=== PATIENT | female | born 1945 | race Caucasian/White ===

== ENCOUNTER 2017-01-27 14:17 | Emergency (ER) | payer OTHER ==
[2017-01-27 14:20] VITALS: BMI 32.0
--- NOTE | 2017-01-27 14:38 | PDOC ---
History of Present Illness - General Chief Complaint: Revisit,Radiology Variance Stated Complaint: SENT BY PCP History Source: Patient - History of Present Illness Initial Comments: 01/27/17 16:24 Pt was called into to ER by her PMD. He spoke with the pt several days ago after a fall hitting her head on the coffee table. She has a pain in her right side of head without bleeding or neurological defecies. He had sent her in for a Skull xray. This revealed some concern of calcifications ot the right convex. He now sent her in for head CT for evaluation. Pt now neurologically intact, no complaints. PMH: Not on any AC. Past History - Past Medical History Allergies/Adverse Reactions: Allergies Allergy/AdvReac Type Severity Reaction Status Date / Time No Known Allergies Allergy Verified 01/27/17 14:20 Home Medications: Ambulatory Orders Amlodipine Besylate [Norvasc -] 5 mg PO DAILY 01/27/17 Enalapril Maleate [Vasotec] 20 mg PO DAILY 01/27/17 Lactulose 10 gm PO DAILY 01/27/17 Omeprazole 20 mg PO DAILY 01/27/17 GI Disorders: Yes (reflux) HTN: Yes - Suicide/Smoking/Psychosocial Hx Smoking History: Never smoked Information on smoking cessation initiated: No Hx Alcohol Use: No Drug/Substance Use Hx: No Substance Use Type: None Review of Systems - Review of Systems Able to Perform ROS?: Yes All Other Systems: Reviewed and Negative *Physical Exam - Vital Signs Last Vital Signs Temp Pulse Resp BP Pulse Ox 97.7 F 70 18 131/72 98 01/27/17 14:18 01/27/17 14:18 01/27/17 14:18 01/27/17 14:18 01/27/17 14:18 - Physical Exam General Appearance: Yes: Nourished HEENT: positive: Normal ENT Inspection, Normal Voice Respiratory/Chest: positive: Lungs Clear Cardiovascular: positive: Regular Rate Gastrointestinal/Abdominal: positive: Normal Bowel Sounds, Flat, Soft Extremity: positive: Normal Inspection Integumentary: positive: Normal Color, Dry, Warm Medical Decision Making - Medical Decision Making 01/27/17 16:28 Pt seen and examined. pt here for head ct after a fall. Pt head CT shows some calcification on the right side, no midline shift affect, no bleeding but some nodules that should be followed up in a few months with a neurologist and a head CT. *DC/Admit/Observation/Transfer Diagnosis at time of Disposition: Fall Qualifiers: Encounter type: initial encounter Qualified Code(s): W19.XXXA - Unspecified fall, initial encounter; W19.XXXA - Unspecified fall, initial encounter - Discharge Dispostion Disposition: HOME Condition at time of disposition: Good Admit: No - Referrals Referrals: Adan Lu MD [Primary Care Provider] - Yaakov Salazar MD [Staff Physician] - - Patient Instructions Printed Discharge Instructions: How to Prevent Falls Additional Instructions: You have been seen for a repeat head exam since your fall Head CT with noted nodules and concern need to be followed up in a few months with a neurologist. Referral has been given.
[2017-01-27 16:45] VITALS: BP 108/72; PULSE 72; TEMP 98.1
== END 2017-01-27 16:44 | disposition home or self-care (01) ==
LOC: JER 14:17
DX: Z04.3 Encounter for examination and observation following other accident (principal); R51 Headache; Z91.81 History of falling; W01.190A Fall on same level from slipping, tripping and stumbling with subsequent striking against furniture, initial encounter; Y93.9 Activity, unspecified; Y92.9 Unspecified place or not applicable
CPT/HCPCS: 70450-TC; 99282-25

== ENCOUNTER 2017-11-26 11:05 | Emergency (ER) | payer OTHER ==
[2017-11-26 11:16] VITALS: BMI 33.2
--- NOTE | 2017-11-26 11:22 | PDOC ---
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 She states that 2d ago she developed a GIRARD that radiated towards down to her back and then towards her left chest. She states taking Tylenol after which her head and neck pain resolved; however, she continues to endorse the chest pain. It is associated with mild shortness of breath and nausea. She reports new onset LUE numbness/ tingling that started approximately 5 minutes ago. She denies fever, GIRARD/ dizziness, change in vision, abdominal pain, or changes in urination. She denies history of IA and reports having a normal stress test in 201311/26/17 11:44 Past History - Past Medical History Allergies/Adverse Reactions: Allergies Allergy/AdvReac Type Severity Reaction Status Date / Time No Known Allergies Allergy Verified 11/26/17 11:08 Home Medications: Ambulatory Orders Amlodipine Besylate [Norvasc -] 5 mg PO DAILY 01/27/17 Enalapril Maleate [Vasotec] 20 mg PO DAILY 01/27/17 Lactulose 10 gm PO DAILY 01/27/17 Omeprazole 20 mg PO DAILY 01/27/17 COPD: No GI Disorders: Yes (reflux) HTN: Yes - Suicide/Smoking/Psychosocial Hx Smoking History: Never smoked Hx Alcohol Use: No Drug/Substance Use Hx: No Substance Use Type: None Review of Systems - Review of Systems Comments:: GENERAL/CONSTITUTIONAL: No fever or chills. No weakness HEAD, EYES, EARS, NOSE AND THROAT: No change in vision. No ear pain or discharge. No sore throat CARDIOVASCULAR: per HPI RESPIRATORY: No cough, wheezing, or hemoptysis GASTROINTESTINAL: + intermittent nausea; Denies vomiting, diarrhea or constipation GENITOURINARY: No dysuria, frequency, or change in urination MUSCULOSKELETAL: No joint or muscle swelling or pain. No neck or back pain SKIN: No rash NEUROLOGIC: No headache, loss of consciousness, or change in strength/sensation ENDOCRINE: No increased thirst. No abnormal weight change HEMATOLOGIC/LYMPHATIC: No anemia, easy bleeding, or history of blood clots ALLERGIC/IMMUNOLOGIC: No hives or skin allergy 11/26/17 11:20 *Physical Exam - Vital Signs Last Vital Signs Temp Pulse Resp BP Pulse Ox 98.9 F 79 18 139/63 98 11/26/17 11:08 11/26/17 11:08 11/26/17 11:08 11/26/17 11:08 11/26/17 11:08 - Physical Exam Comments: GENERAL: Awake, alert, and fully oriented, in no acute distress HEAD: No signs of trauma, normocephalic, atraumatic EYES: PERRL, EOMI, sclera anicteric, conjunctiva clear ENT: Hearing grossly normal, nares patent, oropharynx clear without exudates. Moist mucosa NECK: Normal ROM, supple, no lymphadenopathy LUNGS: No distress, speaks full sentences, clear to auscultation bilaterally HEART: Regular rate and rhythm, normal S1 and S2, no murmurs appreciated, peripheral pulses normal and equal bilaterally ABDOMEN: Soft, nontender, normoactive bowel sounds. No guarding, no rebound EXTREMITIES : Normal inspection, Normal range of motion, no edema. No clubbing or cyanosis NEUROLOGICAL: Cranial nerves II through XII grossly intact. Normal speech, normal gait, no focal sensorimotor deficits SKIN: Warm, Dry, normal turgor, no rashes or lesions noted 11/26/17 11:22 ED Treatment Course - LABORATORY CBC & Chemistry Diagram: 11/26/17 12:19 11/26/17 12:19 Medical Decision Making - Medical Decision Making The patient is a 72F with a history of HTN who presents with 2days of non- radiating, left-sided, sharp, intermittent chest pain. She states that 2d ago she developed a GIRARD that radiated towards down to her back and then towards her left chest. Ddx: ACS, PE, PNX, PNA; less likely AD/aortic aneurysm ED Course CMP, CBC, Cardiac profile, UA ECG, CXR, B/l BPs Tylenol 975mg PO once for pain ASA 325mg for ACS RUE BP: 110/56 LUE BP: 122/61 CBC without leukocytosis; CMP without electrolyte abnormality ECG without significant change from previous 11/26/17 13:35 Trop negative x2; pain improved; denies SOB; feel comfortable Will DC with PCP and Cards F/u 11/26/17 16:45 Dispo: Home with PCP and Cardiology f/u 11/26/17 17:20 *DC/Admit/Observation/Transfer Diagnosis at time of Disposition: Chest pain in adult - Discharge Dispostion Disposition: HOME Condition at time of disposition: Improved Decision to Admit order: No - Referrals Referrals: Adan Lu MD [Primary Care Provider] - Viral Gooden MD [Staff Physician] - - Patient Instructions Printed Discharge Instructions: DI for Atypical Chest Pain Additional Instructions: You were seen in the Emergency Department today for chest pain and shortness of breath. You were found not to have an acute heart attack or signs of infection. Please review the handouts provided at discharge. Follow up with your primary care physician within the next 1-3 days. Return to the Emergency Department if you begin to experience fevers/chills, worsening symptoms, or any new concerning symptoms. Hoy se lo girard visto en el Departamento de Emergencia por dolor en el pecho y dificultad para respirar. Se descubri que no vinay un ataque cardaco romero o signos de infeccin. Por favor revise los folletos proporcionados al momento del amena. Anh un seguimiento con weinberg mdico de atencin primaria dentro de los prximos 1-3 britt. Regrese al Departamento de Emergencia si comienza a experimentar fiebre / escalofros, empeoramiento de los sntomas o cualquier nuevo sntoma preocupante. Print Language: PARAGUAYAN - Post Discharge Activity
--- NOTE | 2017-11-26 11:27 | PDOC ---
Attending Attestation - HPI HPI: 11/26/17 12:19 The patient is a 72 year old female, with a significant past medical history of HTN, who presents to the emergency department with, 2 days of chest pain. She describes her chest pain as sharp, left-sided and intermittent in nature. Her pain initially onset as a headache which radiated to her back and down to her left chest. She reports taking Tylenol for her pain which alleviated the headache and back pain but not the chest pain. She reports associated nausea and mild shortness of breath. While in the ED, she reports experiencing LUE numbness and tingling. She denies recent fevers, chills, or dizziness. She denies recent vomit, diarrhea or constipation. She denies recent dysuria, frequency, urgency or hematuria. Allergies: NKA Social history: Nonsmoker. Denies EtOH use and recreational drug use. Primary Care Physician: Dr. Lu - Physicial Exam PE: 11/26/17 12:52 GENERAL: The patient is in no acute distress. HEAD: Normal with no signs of trauma. NECK: Normal range of motion, supple without lymphadenopathy, JVD, or masses. LUNGS: Breath sounds equal, clear to auscultation bilaterally. No wheezes, and no crackles. HEART:Regular rate and rhythm, normal S1 and S2 without murmur, rub or gallop. ABDOMEN: Soft, nontender, normoactive bowel sounds. No guarding, no rebound. No masses palpable. EXTREMITIES: Normal range of motion, no edema. No clubbing or cyanosis. No erythema, or tenderness. NEUROLOGICAL: Cranial nerves II through XII grossly intact. Normal speech. No focal neurological deficits. MUSCULOSKELETAL: Back non-tender to palpation, no CVA tenderness SKIN: Warm, Dry, normal turgor, no rashes or lesions noted. <Dewayne Pete - Last Filed: 11/26/17 12:52> - Resident Resident Name: Hansel Vidal - ED Attending Attestation I have performed the following: I have examined & evaluated the patient, The case was reviewed & discussed with the resident, I agree w/resident's findings & plan, Exceptions are as noted - Medical Decision Making 11/26/17 15:56 72 yo F who presents to the ER with a complaint of chest pain Sx began two days ago chest pain is intermittent Began with neck and back pain No shortness of breath Last cardiac work up was in 2016 Laboratory Tests 11/26/17 11/26/17 12:19 12:19 WBC 5.3 Hgb 12.2 Hct 35.9 Plt Count 311 Sodium 141 Potassium 4.3 Chloride 107 Carbon Dioxide 27 BUN 15 Creatinine 0.7 Random Glucose 106 Creatine Kinase 109 Troponin I 0.06 H HEART score 3 Initial troponin indeterminant Repeat troponin pending Troponin repeated Pt seen in the ER by Orthopedic Technician Dr Sheth D/c Home Follow up with PMD and Orthopedic Technician within 2-3 days Clinical Impression: chest pain, initial presentation <Thu Stewart - Last Filed: 11/28/17 09:26> Attestations - Attestations 11/26/17 12:19 Documentation prepared by Dewayne Pete, acting as medical lab technologist for Thu Stewart MD. <Dewayne Pete - Last Filed: 11/26/17 12:52>
[2017-11-26] MEDS ORDERED: ASPIRIN 325 MG TABLET PO ONE (11:37)
[2017-11-26] MEDS ORDERED: ACETAMINOPHEN 325 MG TABLET (FP) PO ONE (11:37)
[2017-11-26] MEDS ORDERED: ACETAMINOPHEN 325 MG TABLET (FP) ONE (12:17)
[2017-11-26] MEDS ORDERED: ASPIRIN 325 MG TABLET ONE (12:18)
[2017-11-26 12:36] LABS: HEMATOCRIT 35.9 % (32.4-45.2); HEMOGLOBIN 12.2 GM/dL (10.7-15.3); MCH 31.7 pg (25.7-33.7); MCHC 34.1 g/dl (32.0-36.0); MEAN PLT VOLUME 8.4 fl (7.5-11.1); PLATELET COUNT 311 K/MM3 (134-434); RBC 3.85 M/mm3 (3.60-5.2); RDW 13.1 % (11.6-15.6); WHITE BLOOD COUNT 5.3 K/mm3 (4.0-10.0)
[2017-11-26 13:26] LABS: URINE APPEARANCE CLEAR; URINE BILIRUBIN NEGATIVE (<2.0 mg/dL); URINE COLOR COLORLESS; URINE GLUCOSE (UA) NEGATIVE (NEGATIVE); URINE KETONE NEGATIVE (NEGATIVE); URINE LEUK ESTERASE NEGATIVE (NEGATIVE); URINE NITRITE NEGATIVE (NEGATIVE); URINE PROTEIN NEGATIVE (NEGATIVE); URINE UROBILINOGEN NEGATIVE mg/dL (0.2-1.0)
[2017-11-26 14:14] LABS: ALBUMIN 3.9 g/dl (3.4-5.0); ALK PHOS 162 U/L (45-117); ANION GAP 7 (8-16); BILIRUBIN,TOTAL 0.3 mg/dL (0.2-1.0); BLOOD UREA NITROGEN 15 mg/dL (7-18); CALCIUM 8.9 mg/dL (8.5-10.1); CHLORIDE 107 mmol/L (98-107); CO2 27 mmol/L (21-32); CREATININE 0.7 mg/dL (0.55-1.02); GLUCOSE,RANDOM 106 mg/dL (74-106); POTASSIUM 4.3 mmol/L (3.5-5.1); SGOT/AST 22 U/L (15-37); SGPT/ALT 29 U/L (12-78); SODIUM 141 mmol/L (136-145); TOT PROT 7.7 g/dl (6.4-8.2)
[2017-11-26 15:30] VITALS: TEMP 98
[2017-11-26 15:31] VITALS: BP 110/56; PULSE 61
--- NOTE | 2017-11-26 16:19 | CON.CARD ---
Consult Consult Specialty:: Cardiology Referred by:: ER Reason for Consultation:: chest pain - History of Present Illness Chief Complaint: chest pain History of Present Illness: 72F h/o HTN p/w 2 days of nonradiating sharp chest pain, left side of chest. Also has headache radiating down back to left chest. Improved with tylenol, however chest pain continued. It is intermittent over the last 2 days. Endorses exercising at the [facility] and walking without exertional symptoms. Does not have laborer [facility]. Reports normal nuclear stress in 2013, report not available. Denies any cardiac history. troponin 0.06 x 2. EKG without ischemic changes. Currently does not have chest pain. - History Source History Provided By: Patient Limitations to Obtaining History: No Limitations - Past Medical History Cardio/Vascular: Yes: HTN - Alcohol/Substance Use Hx Alcohol Use: No - Smoking History Smoking history: Never smoked Home Medications - Allergies Allergies/Adverse Reactions: Allergies Allergy/AdvReac Type Severity Reaction Status Date / Time No Known Allergies Allergy Verified 11/26/17 11:08 - Home Medications Home Medications: Ambulatory Orders Amlodipine Besylate [Norvasc -] 5 mg PO DAILY 01/27/17 Enalapril Maleate [Vasotec] 20 mg PO DAILY 01/27/17 Lactulose 10 gm PO DAILY 01/27/17 Omeprazole 20 mg PO DAILY 01/27/17 Review of Systems - Review of Systems Constitutional: reports: No Symptoms Eyes: reports: No Symptoms HENT: reports: No Symptoms Neck: reports: No Symptoms Cardiovascular: reports: Chest Pain, Shortness of Breath Respiratory: reports: No Symptoms Gastrointestinal: reports: No Symptoms Musculoskeletal: reports: No Symptoms Integumentary: reports: No Symptoms Neurological: reports: Headache, Numbness Endocrine: reports: No Symptoms Hematology/Lymphatic: reports: No Symptoms Psychiatric: reports: No Symptoms Vital Signs: Vital Signs Temperature 98.0 F 11/26/17 15:29 Pulse Rate 61 11/26/17 15:30 Respiratory Rate 18 11/26/17 15:29 Blood Pressure 110/56 11/26/17 15:30 O2 Sat by Pulse Oximetry (%) 97 11/26/17 15:29 Constitutional: Yes: Well Nourished, No Distress Eyes: Yes: Conjunctiva Clear, EOM Intact HENT: Yes: Atraumatic, Normocephalic Neck: Yes: Supple Respiratory: Yes: Regular, CTA Bilaterally Gastrointestinal: Yes: Normal Bowel Sounds, Soft Cardiovascular: Yes: Regular Rate and Rhythm Edema: No Neurological: Yes: Alert, Oriented Psychiatric: Yes: Alert, Oriented - Other Data Labs, Other Data: CBC, BMP 11/26/17 12:19 11/26/17 12:19 Troponin, BNP 11/26/17 12:19 Troponin I 0.06 H Troponin, BNP 11/26/17 12:19 Troponin I 0.06 H Assessment/Plan CXR: no acute process EKG: sinus with nonspecific T wave changes 72F h/o HTN p/w atypical chest pain chest pain - atypical, not exertional, intermittent for over two days - denies exertional symptoms when exercising at home - EKG unremarkable, trop neg x 2, unlikely to be ACS - stable for discharge from cardiac perspective, would follow up with lab[facility] house in 1-2 weeks HTN - controlled on enalapril, amlodipine, continue
--- NOTE | 2017-11-27 16:28 | EKG ---
Test Reason : Blood Pressure : / mmHG Vent. Rate : 079 BPM Atrial Rate : 079 BPM P-R Int : 144 ms QRS Dur : 086 ms QT Int : 384 ms P-R-T Axes : 018 007 -06 degrees QTc Int : 440 ms NORMAL SINUS RHYTHM INFERIOR INFARCT (CITED ON OR BEFORE 26-NOV-2017) ABNORMAL ECG WHEN COMPARED WITH ECG OF 20-JUL-2015 14:42, NO SIGNIFICANT CHANGE WAS FOUND Confirmed by Efren Cardenas MD ([id number]) on 11/27/2017 4:27:25 PM Referred By: Confirmed By:Efren Cardenas MD
== END 2017-11-26 16:15 | disposition home or self-care (01) ==
LOC: JER 11:05
DX: R07.9 Chest pain, unspecified (principal); I10 Essential (primary) hypertension
CPT/HCPCS: 36415; 71045-TC-FY; 80053; 81003; 81015; 82550; 84484; 85027; 93005; 93010; 99285-25

== ENCOUNTER 2017-11-29 07:07 | Emergency (ER) | payer OTHER ==
[2017-11-29 07:19] VITALS: BMI 18.8
--- NOTE | 2017-11-29 07:55 | PDOC ---
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 She states her chest pain is located to her left anterior chest, radiates to her left lateral chest, aggravated by stress, relieved by relaxing, intermittent, lasting 3-5 minutes, described as feeling "like a poke". She states her chest pain began when she was feeling nervous about an [place] examination. She admits to generalized weakness, SOB, urinary urgency, left sided neck pain, mid thoracic back pain. She states her neck pain began x5 days ago when she tilted her head backwards. She was seen in ED for chest pain x3 days ago, Trop 0.06, was seen by cardiology Dr. Sheth, who stated her EKG showed sinus rhythm with non-specific changes, was discharged. Pt was seen by her PCP yesterday, was referred for cardiology outpatient follow up. PCP - Dr. Adan Verduzco Allergies - none Past History - Past Medical History Allergies/Adverse Reactions: Allergies Allergy/AdvReac Type Severity Reaction Status Date / Time No Known Allergies Allergy Verified 11/29/17 07:12 Home Medications: Ambulatory Orders Amlodipine Besylate [Norvasc -] 5 mg PO DAILY 01/27/17 Enalapril Maleate [Vasotec] 20 mg PO DAILY 01/27/17 Lactulose 10 gm PO DAILY 01/27/17 Omeprazole 20 mg PO DAILY 01/27/17 COPD: No DVT: No GI Disorders: Yes (reflux) HTN: Yes - Immunization History Immunization Up to Date: Yes - Suicide/Smoking/Psychosocial Hx Smoking History: Never smoked Hx Alcohol Use: No Drug/Substance Use Hx: No Substance Use Type: None Review of Systems - Review of Systems Able to Perform ROS?: Yes Comments:: 11/29/17 08:49 General: denies fever, chills, night sweats, generalized weakness. HEENT: denies sore throat, rhinorrhea, ear pain. Heart: admits to chest pain. denies palpitations, syncope, lower extremity swelling, diaphoresis. Respiratory: admits to shortness of breath. denies cough, sputum production, hematemesis. Abdomen: denies abdominal pain, nausea, vomiting, diarrhea, constipation, blood in stool. : admits to urinary urgency. denies dysuria, increased urinary frequency, hematuria, urinary incontinence, flank pain. Back: admits to back pain. denies flank pain. Musculoskeletal: admits to neck pain. Neurological: denies headache, dizziness, numbness, tingling, weakness. Skin: denies rash, laceration, abrasion. *Physical Exam - Vital Signs Last Vital Signs Temp Pulse Resp BP Pulse Ox 98.7 F 68 20 149/69 98 11/29/17 07:10 11/29/17 07:10 11/29/17 07:10 11/29/17 07:10 11/29/17 07:10 - Physical Exam Comments: 11/29/17 08:56 Appearance: comfortable. HEENT: head is normocephalic, atraumatic. EOMI. PERRLA. Neck: supple. Full ROM. no tenderness to palpation of mid-line c-spine or paraspinal c-spine. Heart: regular rhythm. no murmurs, rubs or gallops. No pericardial friction rub. no carotid bruit bilaterally. no JVD. Lungs: clear to auscultation bilaterally. no crackles, rhonchi or wheezing. no stridor. Abdomen: soft, nontender. normal bowel sounds. no rebound, guarding, masses. Extremities: Peripheral pulses intact adn equal. No lower extremity edema. Neurological: Alert. Oriented x3. CN 2-12 grossly intact. Moves all four extremities. Heart Score/ECG Review - ECG Impressions Comment:: 11/29/17 10:21 Rate 66, regular rhythm, normal axis, no acute ST changes since prior EKG . ED Treatment Course - LABORATORY CBC & Chemistry Diagram: 11/29/17 09:30 11/29/17 09:30 Medical Decision Making - Medical Decision Making 11/29/17 08:46 72 year old female with PMH HTN presents to ED for chest pain x4 days. Was seen x3 days ago in ED for similar complaints, CXR negative, CBC normal, CMP normal, Trop 0.06, UA negative. Initial Vital Signs Temp Pulse Resp BP Pulse Ox 98.7 F 68 20 149/69 98 11/29/17 07:10 11/29/17 07:10 11/29/17 07:10 11/29/17 07:10 11/29/17 07:10 Afebrile. No tachycardia. No hypoxia. No hypotension. Pending labs, EKG, CXR. 11/29/17 10:17 CXR negative. EKG no changes from x3 days ago. 11/29/17 12:37 CBC normal CMP normal Trop 0.06 UA negative Pending repeat Trop and CTA report. 11/29/17 14:03 Paged Radiology for CTA report. 11/29/17 14:33 CTA report - no hemodynamically significant stenosis bilaterally. incidental possible AVM identified. incidental thyroid nodule identified. Pt will be discharged with instructions for PCP follow up and strict return precautions. I spoke with the patient about the plan for her care, with which she agrees. *DC/Admit/Observation/Transfer Diagnosis at time of Disposition: Chest pain - Discharge Dispostion Disposition: HOME Condition at time of disposition: Stable - Referrals Referrals: Adan Lu MD [Primary Care Provider] - Everett Klein MD, FAANS [Staff Physician] - - Patient Instructions Additional Instructions: You were seen today for chest pain, neck pain and back pain. Your lab work was normal. A copy of your results have been included in your discharge paperwork. Your chest X-ray was normal. A copy of your results have been included in your discharge paperwork. Your CT of your neck revealed the arteries in your neck are normal. An incidental thyroid nodule and vascular malformation. Please follow up with your primary care doctor within 7 days, so that they can follow up on the findings from today. Call their office today and make an appointment. Bring the paperwork given to you today with you. Your care is not complete until you follow up with a primary care doctor. Please follow up with a neurosurgeon within 7 days, so that they can follow up on the findings from today. I have provided a referral for Dr. Klein in your discharge paperwork. Call his office today and make an appointment. Bring the paperwork given to you today with you. Your care is not complete until you follow up with a neurosurgeon. Return to the Emergency Department for any chest pain, shortness of breath, numbness, tingling, nausea, vomiting, lightheadedness, dizziness or any other new, worsening or concerning symptoms. Hoy fuiste visto por dolor en el pecho, dolor de heather y dolor de espalda. Tu trabajo de laboratorio fue normal. Abbie copia de lukasz resultados landry sido incluida en almaraz documentacin de descarga. Almaraz radiografa de trax era normal. Abbie copia de lukasz resultados landry sido incluida en almaraz documentacin de descarga. Almaraz TC de almaraz heather revel que las arterias en almaraz heather son normales. Un ndulo tiroideo incidental y abbie malformacin vascular. Realice un seguimiento con almaraz mdico de atencin primaria dentro de los 7 britt, para que puedan hacer un seguimiento de los hallazgos de hoy. Llmalos delmy y leonila abbie melissa. Traiga la documentacin que se le entreg hoy con usted. Almaraz cuidado no est completo hasta que magda un seguimiento con un mdico de atencin primaria. Por favor, magda un seguimiento con un neurocirujano dentro de los 7 britt, para que puedan hacer un seguimiento de los hallazgos de hoy. He proporcionado abbie referencia para el Dr. Klein en almaraz documentacin de descarga. Llama a almaraz oficina delmy y haz abbie melissa. Traiga la documentacin que se le entreg hoy con usted. Almaraz cuidado no est completo hasta que magda un seguimiento con un neurocirujano. Regrese al servicio de urgencias por cualquier dolor en el pecho, dificultad para respirar, entumecimiento, hormigueo, nuseas, vmitos, aturdimiento, mareos o cualquier otro sntoma nuevo, que empeora o que le afecte. Print Language: ENG - Post Discharge Activity
[2017-11-29 09:53] LABS: BASO % 0.8 % (0-2.0); EOS % 5.1 % (0-4.5); HEMATOCRIT 36.8 % (32.4-45.2); HEMOGLOBIN 12.8 GM/dL (10.7-15.3); LYMPH % 26.8 % (8-40); MCH 32.4 pg (25.7-33.7); MCHC 34.7 g/dl (32.0-36.0); MEAN CELL VOLUME 93.3 fl (80-96); MEAN PLT VOLUME 8.7 fl (7.5-11.1); MONO % 10.1 % (3.8-10.2); NEUT % 57.2 % (42.8-82.8); PLATELET COUNT 331 K/MM3 (134-434); RBC 3.94 M/mm3 (3.60-5.2); RDW 12.9 % (11.6-15.6); WHITE BLOOD COUNT 4.8 K/mm3 (4.0-10.0)
[2017-11-29] MEDS ORDERED: ACETAMINOPHEN 1000 MG/100 ML VIAL (NON FORMULARY) IVPB ONE (09:58)
[2017-11-29 10:03] LABS: INR 1.02 (0.83-1.09); PROTHROMBIN TIME (PATIENT) 11.5 SEC (9.7-13.0)
[2017-11-29 10:06] LABS: ACTIVATED PTT 30.5 SECONDS (25.2-36.5)
[2017-11-29 10:19] LABS: ALBUMIN 4.1 g/dl (3.4-5.0); ANION GAP 8 (8-16); BLOOD UREA NITROGEN 14 mg/dL (7-18); CALCIUM 8.9 mg/dL (8.5-10.1); CHLORIDE 105 mmol/L (98-107); CO2 29 mmol/L (21-32); CREATININE 0.8 mg/dL (0.55-1.02); GLUCOSE,RANDOM 97 mg/dL (74-106); POTASSIUM 4.6 mmol/L (3.5-5.1); SGOT/AST 23 U/L (15-37); SGPT/ALT 29 U/L (12-78); SODIUM 142 mmol/L (136-145)
[2017-11-29 10:24] LABS: ALK PHOS 138 U/L (45-117); BILIRUBIN,TOTAL 0.4 mg/dL (0.2-1.0); TOT PROT 7.9 g/dl (6.4-8.2)
[2017-11-29 10:44] LABS: URINE APPEARANCE CLEAR; URINE BILIRUBIN NEGATIVE (<2.0 mg/dL); URINE COLOR STRAW; URINE GLUCOSE (UA) NEGATIVE (NEGATIVE); URINE KETONE NEGATIVE (NEGATIVE); URINE LEUK ESTERASE NEGATIVE (NEGATIVE); URINE NITRITE NEGATIVE (NEGATIVE); URINE PROTEIN NEGATIVE (NEGATIVE); URINE UROBILINOGEN NEGATIVE mg/dL (0.2-1.0)
--- NOTE | 2017-11-29 10:48 | PDOC ---
Attending Attestation - Resident Resident Name: Samantha,Jeanna - ED Attending Attestation I have performed the following: I have examined & evaluated the patient, The case was reviewed & discussed with the resident, I agree w/resident's findings & plan, Exceptions are as noted - HPI HPI: 11/29/17 10:45 72 F with h/o HTN presents to ED with chest pain and neck pain. Pt reports constant L sided chest pain, non-exertional, nonpleuritic, starting 4 days ago. Pt was seen in this ED 2 days ago and evaluated by cardiology. Pt was discharged home and has since f/u'ed with her PMD who has scheduled a cards appointment for tomorrow. Pt reports the pain has not changed or worsened. However, pt presents today with new complaint of L sided neck pain. She states that she bent her head backwards in the shower and felt sudden pain in her L posterior neck. Denies headache. Denies weakness/numbness in any extremity. - Physicial Exam PE: 11/29/17 10:46 "GENERAL: Awake, alert, and fully oriented, in no acute distress. HEAD: No signs of trauma EYES: PERRLA, EOMI, sclera anicteric, conjunctiva clear ENT: Auricles normal inspection, hearing grossly normal, nares patent, oropharynx clear without exudates. Moist mucosa NECK: Nontender, no stepoffs, Normal ROM, supple, no lymphadenopathy, JVD, or masses LUNGS: Breath sounds equal, clear to auscultation bilaterally. No wheezes, and no crackles HEART: Regular rate and rhythm, normal S1 and S2, no murmurs, rubs or gallops ABDOMEN: Soft, nontender, normoactive bowel sounds. No guarding, no rebound. No masses EXTREMITIES: Normal range of motion, no edema. No clubbing or cyanosis. No cords, erythema, or tenderness NEUROLOGICAL: Cranial nerves II through XII intact. 5/5 strength and sensation in all extremities, Normal speech, normal gait, normal cerebellar function SKIN: Warm, Dry, normal turgor, no rashes or lesions noted." - Medical Decision Making 11/29/17 10:47 72 F with atypical chest pain x 4 days. EKG unchanged since prior evaluation 2 days ago for same complaint. Will r/o ACS with trops. Pt also with new L neck pain after bending head back. Will r/o carotid vs vertebral artery dissection with CTA. - Labs, trop x2 - CTA neck - CXR - Reassess 11/29/17 12:18 Labs unremarkable, first trop 0.06, consistent with pt's baseline Will repeat trop CTA ordered at 9:30, taken, awaiting radiology report 11/29/17 14:04 2nd trop 0.05 Dispo pending radiology report of CTA 11/29/17 14:35 CTA unremarkable other than small vascular abnormality. Pt informed of results and understands need to f/u with nsgy for further evaluation. Pt is well appearing, with normal vitals. Clinically stable for DC at this time. I discussed the physical exam findings, ancillary test results and final diagnoses with the patient. I answered all of the patient's questions. The patient was satisfied with the care received and felt comfortable with the discharge plan and treatment plan. The patient agrees to follow up with the primary care physician within 24-72 hours.
[2017-11-29 14:48] VITALS: BP 127/70; PULSE 60; TEMP 98.2
--- NOTE | 2017-11-29 15:46 | EKG ---
Test Reason : Blood Pressure : / mmHG Vent. Rate : 066 BPM Atrial Rate : 066 BPM P-R Int : 160 ms QRS Dur : 086 ms QT Int : 424 ms P-R-T Axes : 031 020 004 degrees QTc Int : 444 ms SINUS RHYTHM WITH OCCASIONAL PREMATURE VENTRICULAR COMPLEXES CANNOT RULE OUT INFERIOR INFARCT (CITED ON OR BEFORE 26-NOV-2017) ABNORMAL ECG WHEN COMPARED WITH ECG OF 26-NOV-2017 11:12, PREMATURE VENTRICULAR COMPLEXES ARE NOW PRESENT Confirmed by SHOAIB TANNER MD ([id number]) on 11/29/2017 3:45:57 PM Referred By: Confirmed By:SHOAIB TANNER MD
== END 2017-11-29 15:12 | disposition home or self-care (01) ==
LOC: JER 07:07
PROC: 3E033NZ Introduction of Analgesics, Hypnotics, Sedatives into Peripheral Vein, Percutaneous Approach (ICD-10-PCS; principal; 2017-11-29)
DX: R07.9 Chest pain, unspecified (principal); I10 Essential (primary) hypertension
CPT/HCPCS: 36415; 70498-TC; 71046-TC-FY; 80053; 81003; 81015; 82550; 84484; 85025; 85610; 85730; 87086; 93005; 93010; 99283-25; J0131

== ENCOUNTER 2018-02-22 09:13 | Emergency (ER) | payer OTHER ==
[2018-02-22 09:40] VITALS: BMI 29.2
--- NOTE | 2018-02-22 09:47 | PDOC ---
History of Present Illness - General Chief Complaint: Pain Stated Complaint: ABD PAIN Time Seen by Provider: 02/22/18 09:47 History Source: Patient Exam Limitations: No Limitations Past History - Past Medical History Allergies/Adverse Reactions: Allergies Allergy/AdvReac Type Severity Reaction Status Date / Time No Known Allergies Allergy Verified 02/22/18 09:32 Home Medications: Ambulatory Orders Amlodipine Besylate [Norvasc -] 5 mg PO DAILY 01/27/17 Enalapril Maleate [Vasotec] 20 mg PO DAILY 01/27/17 Lactulose 10 gm PO DAILY 01/27/17 Omeprazole 20 mg PO DAILY 01/27/17 Meloxicam 15 mg PO DAILY 30 Days #30 tablet MDD 15mg 02/05/18 COPD: No DVT: No GI Disorders: Yes (reflux) HTN: Yes - Immunization History Immunization Up to Date: Yes - Suicide/Smoking/Psychosocial Hx Smoking History: Never smoked Hx Alcohol Use: No Drug/Substance Use Hx: No Substance Use Type: None *Physical Exam - Vital Signs Last Vital Signs Temp Pulse Resp BP Pulse Ox 98.1 F 70 18 117/63 99 02/22/18 09:32 02/22/18 09:32 02/22/18 09:32 02/22/18 09:32 02/22/18 09:32 *DC/Admit/Observation/Transfer - Referrals Referrals: Adan Lu MD [Primary Care Provider] - - Patient Instructions - Post Discharge Activity
--- NOTE | 2018-02-22 10:13 | PDOC ---
History of Present Illness - General Chief Complaint: Pain Stated Complaint: ABD PAIN Time Seen by Provider: 02/22/18 09:47 History Source: Patient - History of Present Illness Initial Comments: 02/22/18 10:41 The patient is a 73 year old female with a PMH of HTN and diverticulitis who presents with a 2 day h/o L sided abdominal pain. Pain started last night around 8 p.m. and was initially a 5-6/10 however this morning it was a 9/10 prompting her to come to the ED. Patient states the pain is constant, sharp, w/ o any radiation, and no identifiable triggering or relieving factors. Denies associated nausea/vomiting, fevers/chills, flank pain, dysuria/hematuria. Last BM was earlier today and was normal. H/o constipation for which she takes Metamucil PRN. 10 point ROS is negative including no headache, sore throat, cough, numbness/ tingling, . NKDA Social: denies toxic habits PMD: Dr. Reeder Past History - Past Medical History Allergies/Adverse Reactions: Allergies Allergy/AdvReac Type Severity Reaction Status Date / Time No Known Allergies Allergy Verified 02/22/18 09:32 Home Medications: Ambulatory Orders Amlodipine Besylate [Norvasc -] 5 mg PO DAILY 01/27/17 Enalapril Maleate [Vasotec] 20 mg PO DAILY 01/27/17 Omeprazole 20 mg PO DAILY 01/27/17 Alendronate Sodium [Binosto] 70 mg PO ASDIR 02/22/18 COPD: No DVT: No GI Disorders: Yes (reflux) HTN: Yes - Immunization History Immunization Up to Date: Yes - Suicide/Smoking/Psychosocial Hx Smoking History: Never smoked Hx Alcohol Use: No Drug/Substance Use Hx: No Substance Use Type: None *Physical Exam - Vital Signs Last Vital Signs Temp Pulse Resp BP Pulse Ox 98.1 F 70 18 117/63 99 02/22/18 09:32 02/22/18 09:32 02/22/18 09:32 02/22/18 09:32 02/22/18 09:32 - Physical Exam General Appearance: Yes: Nourished, Appropriately Dressed HEENT: positive: Normal Voice, Hearing Grossly Normal Neck: positive: Trachea midline, Supple Respiratory/Chest: positive: Lungs Clear, Normal Breath Sounds Cardiovascular: positive: S1, S2. negative: Edema, JVD Vascular Pulses: Dorsalis-Pedis (R): 2+, Doralis-Pedis (L): 2+ Gastrointestinal/Abdominal: positive: Normal Bowel Sounds, Soft, Tenderness ( Mild LLQ on deep palpation). negative: Guarding, Rebound, Hernia, Mass Musculoskeletal: negative: CVA Tenderness (R), CVA Tenderness (L) Extremity: positive: Normal Capillary Refill, Normal Inspection Integumentary: positive: Normal Color, Dry, Warm Neurologic: positive: Fully Oriented, Alert ED Treatment Course - LABORATORY CBC & Chemistry Diagram: 02/22/18 10:24 02/22/18 10:24 Medical Decision Making - Medical Decision Making 02/22/18 11:28 73 year old female with abdominal pain. H/o diverticulitis. VS unremarkable. Soft belly on PE w/mild TTP of LLQ. DDx includes: diverticulitis, SBO, mesenteric ischemia, gastritis. Will obtain basic labs, abdominal CT. IV hydration. Reassess 02/22/18 12:24 Cr 0.[address] 02/22/18 15:01 CT shows diverticula without evidence of acute diverticulitis, no SBO. Patient tolerating PO intake. Symptomatically improved. Will discharge home with supportive care, return precautions and PMD follow-up. I discussed the physical exam findings, ancillary test results and final diagnoses with the patient. I answered all of the patient's questions. The patient was satisfied with the care received and felt comfortable with the discharge plan and treatment plan. The patient will return to the Emergency Department with any new, persistent or worsening symptoms. *DC/Admit/Observation/Transfer Diagnosis at time of Disposition: Abdominal pain - Discharge Dispostion Disposition: HOME Condition at time of disposition: Good Decision to Admit order: No - Referrals Referrals: Adan Lu MD [Primary Care Provider] - Otoniel Quinones MD [Staff Physician] - - Patient Instructions Printed Discharge Instructions: DI for Abdominal Pain-Adult Additional Instructions: You were evaluated today for abdominal pain. A Cat Scan of your abdomen showed no concerning findings. At this time you are safe for discharge. Drink lots of water and eat small meals for the next few days. Start with soft foods (applesauce, bread, rice) and advance your diet as tolerated. Please follow up with your primary care doctor (Dr. Reeder) in the next 3 days. Please also make a follow up appointment with Dr. Quinones (a stomach doctor) for further evaluation. Return to the Emergency Department for any new/worsening/concerning symptoms. Usted fue evaluado hoy para el dolor abdominal. Abbie exploracin de irineo de weinberg abdomen no mostr hallazgos preocupantes. En carolina momento usted est seguro para el amena. Yudith katharine agua y coma comidas pequeas diana los prximos britt. Comience con alimentos blandos (compota de manzana, mcallister, arroz) y avance weinberg dieta segn lo tolere. Por favor, magda un seguimiento con weinberg mdico de atencin primaria (Dr. Reeder) en los prximos 3 britt. Por favor, tambin magda abbie melissa de seguimiento con el Dr. Quinones (un mdico estomacal) para abbie evaluacin adicional. Regrese al Departamento de Emergencias para cualquier sntoma nuevo / que empeora / relacionado. Print Language: GREEK - Post Discharge Activity
[2018-02-22 10:20] LABS: URINE APPEARANCE CLEAR; URINE BILIRUBIN NEGATIVE (<2.0 mg/dL); URINE GLUCOSE (UA) NEGATIVE (NEGATIVE); URINE KETONE NEGATIVE (NEGATIVE); URINE LEUK ESTERASE NEGATIVE (NEGATIVE); URINE NITRITE NEGATIVE (NEGATIVE); URINE PROTEIN NEGATIVE (NEGATIVE); URINE UROBILINOGEN NEGATIVE mg/dL (0.2-1.0)
[2018-02-22] MEDS ORDERED: SODIUM CHLORIDE 0.9% 500 ML INFUS.BAG IV ONE (10:21)
[2018-02-22 10:24] LABS: URINE COLOR YELLOW
[2018-02-22 10:42] LABS: URINE HYALINE CAST 12 /lpf; URINE MUCUS MANY
--- NOTE | 2018-02-22 10:42 | PDOC ---
Attending Attestation - Resident Resident Name: Dayana Burrell - ED Attending Attestation I have performed the following: I have examined & evaluated the patient, The case was reviewed & discussed with the resident, I agree w/resident's findings & plan, Exceptions are as noted - HPI HPI: 02/22/18 10:42 Ms Michael Napier is a 73 yo F h/o HTN and diverticulitis She presents to the ER with a complaint of left sided abdominal pain Pain began last night and at that time, was 5/10 Pain has worsened and is now 10/10 No radiation Pt has a h/o constipation but did have 2 bowel movements No fevers or chills No nausea or vomiting 02/22/18 12:32 - Physicial Exam PE: 02/22/18 10:42 GENERAL: The patient is in no acute distress. LUNGS: Breath sounds equal, clear to auscultation bilaterally. No wheezes, and no crackles. HEART:Regular rate and rhythm, normal S1 and S2 ABDOMEN: Soft, nontender, normoactive bowel sounds. No guarding, no rebound. EXTREMITIES: Normal range of motion, no edema. NEUROLOGICAL: Cranial nerves II through XII grossly intact. Normal speech. No focal neurological deficits. SKIN: Warm, Dry, normal turgor, no rashes or lesions noted. 02/22/18 12:33 - Medical Decision Making 02/22/18 12:34 Laboratory Tests 02/22/18 02/22/18 02/22/18 10:00 10:24 10:24 WBC 4.4 Hgb 12.7 Hct 38.1 Plt Count 335 Neutrophils % 54.4 Lymphocytes % 26.4 INR BUN 21 H Creatinine 0.8 Lipase 110 Urine Blood 1+ H Urine Nitrite Negative Ur Leukocyte Esterase Negative Urine WBC (Auto) 1 Urine RBC (Auto) 2 02/22/18 10:24 WBC Hgb Hct Plt Count Neutrophils % Lymphocytes % INR 0.96 BUN Creatinine Lipase Urine Blood Urine Nitrite Ur Leukocyte Esterase Urine WBC (Auto) Urine RBC (Auto) CT pending
[2018-02-22 10:53] LABS: ALBUMIN 3.9 g/dl (3.4-5.0); ALK PHOS 146 U/L (45-117); ANION GAP 9 MMOL/L (8-16); BILIRUBIN,TOTAL 0.3 mg/dL (0.2-1); BLOOD UREA NITROGEN 21 mg/dL (7-18); CHLORIDE 105 mmol/L (98-107); CO2 26 mmol/L (21-32); CREATININE 0.8 mg/dL (0.55-1.3); GLUCOSE,RANDOM 102 mg/dL (74-106); LIPASE 110 U/L (73-393); POTASSIUM 4.5 mmol/L (3.5-5.1); SGOT/AST 25 U/L (15-37); SGPT/ALT 33 U/L (13-61); SODIUM 140 mmol/L (136-145); TOT PROT 7.6 g/dl (6.4-8.2)
[2018-02-22 11:01] LABS: INR 0.96 (0.83-1.09); PROTHROMBIN TIME (PATIENT) 11.3 SEC (9.7-13.0)
[2018-02-22 11:04] LABS: ACTIVATED PTT 31.5 SECONDS (25.2-36.5)
[2018-02-22 11:11] LABS: BASO % 0.6 % (0-2.0); EOS % 8.6 % (0-4.5); HEMATOCRIT 38.1 % (32.4-45.2); HEMOGLOBIN 12.7 GM/dL (10.7-15.3); LYMPH % 26.4 % (8-40); MCH 31.2 pg (25.7-33.7); MCHC 33.3 g/dl (32.0-36.0); MEAN CELL VOLUME 93.9 fl (80-96); MEAN PLT VOLUME 9.3 fl (7.5-11.1); NEUT % 54.4 % (42.8-82.8); PLATELET COUNT 335 K/MM3 (134-434); RBC 4.05 M/mm3 (3.60-5.2); RDW 13.2 % (11.6-15.6); WHITE BLOOD COUNT 4.4 K/mm3 (4.0-10.0)
[2018-02-22 15:24] VITALS: BP 128/79; PULSE 74; TEMP 98.3
== END 2018-02-22 15:25 | disposition home or self-care (01) ==
LOC: JER 09:13
PROC: 3E0337Z Introduction of Electrolytic and Water Balance Substance into Peripheral Vein, Percutaneous Approach (ICD-10-PCS; principal; 2018-02-22)
DX: R10.9 Unspecified abdominal pain (principal); I10 Essential (primary) hypertension; K21.9 Gastro-esophageal reflux disease without esophagitis
CPT/HCPCS: 36415; 74177-TC; 80053; 81003; 81015; 83605; 83690; 85025; 85610; 85730; 86850; 86900; 86901; 87086; 99283-25

== ENCOUNTER 2018-06-30 11:03 | Emergency (ER) | payer OTHER ==
[2018-06-30 11:17] VITALS: BMI 27.4
--- NOTE | 2018-06-30 11:58 | PDOC ---
History of Present Illness - General Chief Complaint: Chest Pain Stated Complaint: CHEST PAIN Time Seen by Provider: 06/30/18 11:30 - History of Present Illness Initial Comments: 06/30/18 11:57 73 F with h/o HTN presents to ED with L breast/chest wall pain. Pt states that she noticed a "little ball" in her L breast about 3 days ago. She reports that it feels sore. She took tylenol for the pain, which helped transiently. Pt denies any SOB. Denies pain upon movement of the arms, but pain does slightly increase on inspiration. Denies F/C/cough. Denies N/V. Denies palpitations. 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 pcp: talon 06/30/18 12:28 Past History - Past Medical History Allergies/Adverse Reactions: Allergies Allergy/AdvReac Type Severity Reaction Status Date / Time No Known Allergies Allergy Verified 06/30/18 11:17 Home Medications: Ambulatory Orders Amlodipine Besylate [Norvasc -] 5 mg PO DAILY 01/27/17 Enalapril Maleate [Vasotec] 20 mg PO DAILY 01/27/17 Omeprazole 20 mg PO DAILY 01/27/17 Alendronate Sodium [Binosto] 70 mg PO ASDIR 02/22/18 COPD: No DVT: No GI Disorders: Yes (reflux) HTN: Yes - Immunization History Immunization Up to Date: Yes - Suicide/Smoking/Psychosocial Hx Smoking History: Never smoked Hx Alcohol Use: No Drug/Substance Use Hx: No Substance Use Type: None Review of Systems - Review of Systems Able to Perform ROS?: Yes Is the patient limited Liberian proficient: No Constitutional: No: Symptoms Reported HEENTM: No: Symptoms Reported Respiratory: No: Symptoms reported Cardiac (ROS): Yes: See HPI ABD/GI: No: Symptoms Reported : No: Symptoms Reported Musculoskeletal: No: Symptoms Reported All Other Systems: Reviewed and Negative *Physical Exam - Vital Signs Last Vital Signs Temp Pulse Resp BP Pulse Ox 98 F 73 18 147/66 100 06/30/18 11:09 06/30/18 11:09 06/30/18 11:09 06/30/18 11:09 06/30/18 11:09 - Physical Exam Comments: 06/30/18 12:32 GENERAL: Awake, alert, and fully oriented, in no acute distress. HEAD: No signs of trauma EYES: PERRLA, EOMI, sclera anicteric, conjunctiva clear ENT: Auricles normal inspection, hearing grossly normal, nares patent, oropharynx clear without exudates. Moist mucosa NECK: Nontender, no stepoffs, Normal ROM, supple, no lymphadenopathy, JVD, or masses LUNGS: Breath sounds equal, clear to auscultation bilaterally. No wheezes, and no crackles HEART: Regular rate and rhythm, normal S1 and S2, no murmurs, rubs or gallops CHEST: + palpable tender nodule L breast, no fluctuance or induration ABDOMEN: Soft, nontender, normoactive bowel sounds. No guarding, no rebound. No masses EXTREMITIES: Normal range of motion, no edema. No clubbing or cyanosis. No cords, erythema, or tenderness NEUROLOGICAL: Cranial nerves II through XII intact. 5/5 strength and sensation in all extremities, Normal speech, normal gait, normal cerebellar function SKIN: Warm, Dry, normal turgor, no rashes or lesions noted. Moderate Sedation - Procedure Monitoring Vital Signs: Procedure Monitoring Vital Signs Temperature 98 F 06/30/18 11:09 Pulse Rate 73 06/30/18 11:09 Respiratory Rate 18 06/30/18 11:09 Blood Pressure 147/66 06/30/18 11:09 O2 Sat by Pulse Oximetry (%) 100 06/30/18 11:09 ED Treatment Course - LABORATORY CBC & Chemistry Diagram: 06/30/18 12:13 06/30/18 12:13 - RADIOLOGY Radiology Studies Ordered: Category Date Time Status CHEST PA & LAT [RAD] Stat Radiology 06/30/18 11:55 Ordered Medical Decision Making - Medical Decision Making 06/30/18 12:33 73 F with sore nodule in L breast. No evidence of active infection on exam. Patient has multiple visits for the same symptoms (and incidentally trops of 0.06) with unremarkable finding. Last visit had a CTA chest which was negative. Pt's EKG with no ischemic changes. Pain seems within the tissue of the breath rather than intrathoracic. 06/30/18 14:11 Will admit to tele obs due to heart score. *DC/Admit/Observation/Transfer Diagnosis at time of Disposition: Atypical chest pain - Discharge Dispostion Decision to Admit order: Yes - Referrals Referrals: Adan Lu MD [Primary Care Provider] - - Patient Instructions - Post Discharge Activity
--- NOTE | 2018-06-30 12:22 | PDOC ---
Attending Attestation - Resident Resident Name: Jacinto Dennison - ED Attending Attestation I have performed the following: I have examined & evaluated the patient, The case was reviewed & discussed with the resident, I agree w/resident's findings & plan, Exceptions are as noted - HPI HPI: 06/30/18 12:22 73 F with h/o HTN presents to ED with L chest wall pain. Pt states that she noticed a lump in her L breast about 3 days ago. She reports that it feels sore. She took tylenol for the pain, which helped transiently. Pt denies any SOB. Denies any exertional or pleuritic nature of the pain. Denies F/C/cough. Denies N/V. Denies palpitations. - Physicial Exam PE: 06/30/18 12:23 GENERAL: Awake, alert, and fully oriented, in no acute distress. HEAD: No signs of trauma EYES: PERRLA, EOMI, sclera anicteric, conjunctiva clear ENT: Auricles normal inspection, hearing grossly normal, nares patent, oropharynx clear without exudates. Moist mucosa NECK: Nontender, no stepoffs, Normal ROM, supple, no lymphadenopathy, JVD, or masses LUNGS: Breath sounds equal, clear to auscultation bilaterally. No wheezes, and no crackles HEART: Regular rate and rhythm, normal S1 and S2, no murmurs, rubs or gallops CHEST: + palpable tender nodule L breast, no fluctuance or induration ABDOMEN: Soft, nontender, normoactive bowel sounds. No guarding, no rebound. No masses EXTREMITIES: Normal range of motion, no edema. No clubbing or cyanosis. No cords, erythema, or tenderness NEUROLOGICAL: Cranial nerves II through XII intact. 5/5 strength and sensation in all extremities, Normal speech, normal gait, normal cerebellar function SKIN: Warm, Dry, normal turgor, no rashes or lesions noted. - Medical Decision Making 06/30/18 12:25 73 F with sore nodule in L breast. No evidence of active infection on exam. Pt' s EKG with no ischemic changes and pain is very atypical, making ACS unlikely. Pt without any other symptoms concerning for cardiopulmonary process. - Labs, trop - CXR - F/u OB for mammogram 06/30/18 14:15 Trop 0.10 Last troponin 0.05 Will admit tele obs to trend trops, cards consult
[2018-06-30 12:29] LABS: BASO % 0.7 % (0-2.0); EOS % 8.2 % (0-4.5); HEMATOCRIT 36.1 % (32.4-45.2); HEMOGLOBIN 12.7 GM/dL (10.7-15.3); LYMPH % 25.8 % (8-40); MCH 32.8 pg (25.7-33.7); MCHC 35.2 g/dl (32.0-36.0); MEAN CELL VOLUME 93.2 fl (80-96); MEAN PLT VOLUME 8.5 fl (7.5-11.1); MONO % 9.5 % (3.8-10.2); NEUT % 55.8 % (42.8-82.8); PLATELET COUNT 309 K/MM3 (134-434); RBC 3.88 M/mm3 (3.60-5.2); RDW 13.3 % (11.6-15.6); WHITE BLOOD COUNT 4.7 K/mm3 (4.0-10.0)
[2018-06-30 12:50] LABS: INR 1.03 (0.83-1.09); PROTHROMBIN TIME (PATIENT) 12.2 SEC (9.7-13.0)
[2018-06-30 12:59] LABS: ALBUMIN 3.8 g/dl (3.4-5.0); ALK PHOS 133 U/L (45-117); ANION GAP 5 MMOL/L (8-16); BILIRUBIN,TOTAL 0.3 mg/dL (0.2-1); BLOOD UREA NITROGEN 11 mg/dL (7-18); CALCIUM 8.7 mg/dL (8.5-10.1); CHLORIDE 104 mmol/L (98-107); CO2 26 mmol/L (21-32); CREATININE 0.8 mg/dL (0.55-1.3); GLUCOSE,RANDOM 120 mg/dL (74-106); MAGNESIUM 2.1 mg/dL (1.8-2.4); POTASSIUM 4.3 mmol/L (3.5-5.1); SGOT/AST 18 U/L (15-37); SGPT/ALT 24 U/L (13-61); SODIUM 135 mmol/L (136-145); TOT PROT 7.3 g/dl (6.4-8.2)
[2018-06-30 14:33] VITALS: TEMP 97.8
--- NOTE | 2018-06-30 15:15 | HP ---
CHIEF COMPLAINT: Chest soreness PCP: Dr. 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 Gooden HISTORY OF PRESENT ILLNESS: 73yo F with history of HTN who presents today with chest soreness for the past day which has been intermittent in nature. Pt reports she took Tylenol which helped the pain slightly, but came to the hospital because she was worried about her pain. Pt reports she noticed a nodule in her L breast about 3 days ago which has never happened before. Pt denies any active chest pain, palpitations, shortness of breath, jaw claudication, diaphoresis, previous cardiac history, headaches, lightheadedness, f/c/n/v/d/constipation. Recent Travel: Denies PAST MEDICAL HISTORY: HTN PAST SURGICAL HISTORY: None Social History: Smoking: Denies Alcohol: Denies Drugs: Denies Lives at home with ; good medical follow-up Family History: Allergies No Known Allergies Allergy (Verified 06/30/18 11:17) HOME MEDICATIONS: Home Medications Medication Instructions Recorded Amlodipine Besylate [Norvasc -] 5 mg PO DAILY 01/27/17 Enalapril Maleate [Vasotec] 20 mg PO DAILY 01/27/17 Omeprazole 20 mg PO DAILY 01/27/17 Alendronate Sodium [Binosto] 70 mg PO ASDIR 02/22/18 REVIEW OF SYSTEMS As per HPI PHYSICAL EXAMINATION Vital Signs 06/30/18 06/30/18 11:09 14:32 Temperature 98 F 97.8 F Pulse Rate 73 Pulse Rate [ 69 Left Apical] Respiratory 18 16 Rate Blood Pressure 147/66 Blood Pressure 126/69 [Left Arm] O2 Sat by Pulse 100 98 Oximetry (%) GENERAL: NAD, awake, alert, and fully oriented HEENT: NC/AT, EOMI, DIMITRI NECK: No JVD CHEST: Tender L chest nodule freely mobile in the 12:30 position. No induration , no skin changes noted LUNGS: Breath sounds equal, clear to auscultation bilaterally. No wheezes, and no crackles. No accessory muscle use. HEART: Regular rate and rhythm, normal S1 and S2 without murmur ABDOMEN: Soft, nontender, not distended, normoactive bowel sounds, no guarding MUSCULOSKELETAL: No CVA tenderness. EXTREMITIES: 2+ DP pulses, warm, No calf tenderness. No peripheral edema. PSYCHIATRIC: Cooperative. Good eye contact. Appropriate mood and affect. SKIN: Warm, dry, no rashes or lesions noted Laboratory Results 06/30/18 06/30/18 06/30/18 12:13 12:13 12:13 WBC 4.7 RBC 3.88 Hgb 12.7 Hct 36.1 MCV 93.2 MCH 32.8 MCHC 35.2 RDW 13.3 Plt Count 309 MPV 8.5 Absolute Neuts (auto) 2.6 Neutrophils % 55.8 Lymphocytes % 25.8 Monocytes % 9.5 Eosinophils % 8.2 H Basophils % 0.7 Nucleated RBC % 0 PT with INR 12.20 INR 1.03 PTT (Actin FS) Sodium 135 L Potassium 4.3 Chloride 104 Carbon Dioxide 26 Anion Gap 5 L BUN 11 Creatinine 0.8 Creat Clearance w eGFR > 60 Random Glucose 120 H Calcium 8.7 Magnesium 2.1 Total Bilirubin 0.3 AST 18 ALT 24 Alkaline Phosphatase 133 H Troponin I Total Protein 7.3 Albumin 3.8 06/30/18 06/30/18 12:13 13:59 WBC RBC Hgb Hct MCV MCH MCHC RDW Plt Count MPV Absolute Neuts (auto) Neutrophils % Lymphocytes % Monocytes % Eosinophils % Basophils % Nucleated RBC % PT with INR INR PTT (Actin FS) Sodium Potassium Chloride Carbon Dioxide Anion Gap BUN Creatinine Creat Clearance w eGFR Random Glucose Calcium Magnesium Total Bilirubin AST ALT Alkaline Phosphatase Troponin I 0.10 H 0.09 H Total Protein Albumin ASSESSMENT/PLAN: Atypical chest pain HTN HTN stable at this point. Continue home medications Highly atypical chest pain with minimal elevation and downtrending troponins. Dr. Gooden was called in ED who recommended 2nd trop and if downtrending to discharge with outpatient follow-up. Would recommend outpatient f/u with diagnostic mammography vs. ultrasound of nodule Tylenol OTC for pain relief with alternating motrin if necessary Dispo: D/C home Case discussed Juan Jaramillo, - IM PGY-2 Visit type - Emergency Visit Emergency Visit: Yes Care time: The patient presented to the Emergency Department on the above date and was hospitalized for further evaluation of their emergent condition. - New Patient This patient is new to me today: Yes Date on this admission: 06/30/18 - Critical Care Critical Care patient: No
--- NOTE | 2018-06-30 15:22 | DS ---
Physical Exam: SUBJECTIVE: See H&P OBJECTIVE: Vital Signs Period Temp Pulse Resp BP Sys/Sprague Pulse Ox Last 24 Hr 97.8 F-98 F 69-73 16-18 126-147/66-69 98-100 PHYSICAL EXAM GENERAL: NAD, awake, alert, and fully oriented HEENT: NC/AT, EOMI, DIMITRI NECK: No JVD CHEST: Tender L chest nodule freely mobile in the 12:30 position. No induration , no skin changes noted LUNGS: Breath sounds equal, clear to auscultation bilaterally. No wheezes, and no crackles. No accessory muscle use. HEART: Regular rate and rhythm, normal S1 and S2 without murmur ABDOMEN: Soft, nontender, not distended, normoactive bowel sounds, no guarding MUSCULOSKELETAL: No CVA tenderness. EXTREMITIES: 2+ DP pulses, warm, No calf tenderness. No peripheral edema. PSYCHIATRIC: Cooperative. Good eye contact. Appropriate mood and affect. SKIN: Warm, dry, no rashes or lesions noted LABS Laboratory Results - last 24 hr 06/30/18 06/30/18 06/30/18 12:13 12:13 12:13 WBC 4.7 RBC 3.88 Hgb 12.7 Hct 36.1 MCV 93.2 MCH 32.8 MCHC 35.2 RDW 13.3 Plt Count 309 MPV 8.5 Absolute Neuts (auto) 2.6 Neutrophils % 55.8 Lymphocytes % 25.8 Monocytes % 9.5 Eosinophils % 8.2 H Basophils % 0.7 Nucleated RBC % 0 PT with INR 12.20 INR 1.03 PTT (Actin FS) Sodium 135 L Potassium 4.3 Chloride 104 Carbon Dioxide 26 Anion Gap 5 L BUN 11 Creatinine 0.8 Creat Clearance w eGFR > 60 Random Glucose 120 H Calcium 8.7 Magnesium 2.1 Total Bilirubin 0.3 AST 18 ALT 24 Alkaline Phosphatase 133 H Troponin I Total Protein 7.3 Albumin 3.8 06/30/18 06/30/18 06/30/18 12:13 12:13 13:59 WBC RBC Hgb Hct MCV MCH MCHC RDW Plt Count MPV Absolute Neuts (auto) Neutrophils % Lymphocytes % Monocytes % Eosinophils % Basophils % Nucleated RBC % PT with INR INR PTT (Actin FS) 32.9 Sodium Potassium Chloride Carbon Dioxide Anion Gap BUN Creatinine Creat Clearance w eGFR Random Glucose Calcium Magnesium Total Bilirubin AST ALT Alkaline Phosphatase Troponin I 0.10 H 0.09 H Total Protein Albumin HOSPITAL COURSE: Date of Admission:06/30/18 Date of Discharge: 06/30/18 Pt seen today due to chest soreness found to have L breast nodule tender to palpation. Pt had troponins drawn which resulted in 0.1 with second trop 0.09. Pt's cardiolgist was called and recommended second trop and if improved or negative to discharge with home follow-up. No ECG changes were noted. CXR was unrevealing. Pt is being discharged in stable condition with the understanding to see her outpatient copper flotation operator and PCP. She understands she will likely need outpatient ultrasound vs. diagnostic mammography for her breast nodule. Minutes to complete discharge: 35 Discharge Summary Reason For Visit: CHEST PAIN Current Active Problems Atypical chest pain (Acute) - Instructions Diet, Activity, Other Instructions: You came in complaining of chest discomfort. Your EKG/electrical function of the heart and your labs were normal and showed no signs of heart attack. We spoke to your copper flotation operator Dr. Gooden who recommends you follow up in the office within 1 week for a routine training. You also noted a a lump on your left breast. There are many causes of this some of which may include cancer. Please follow up with your primary care physician within 1 week and ask about getting an ultrasound or mammogram of the breast. Please resume your home meds Please follow up with your primary care physician within 1 week Please follow up with your Interior Design Coordinator Dr. Gooden within 1 week If you experience any more or severe worsening of chest pain or any shortness of breath, lightheadedness, nausea, vomit, arm numbness, tingling, please call 911 or go to the ER Referrals: Adan Lu MD [Primary Care Provider] - 1 Week Viral Gooden MD [Staff Physician] - 1 Week - Home Medications Comprehensive Discharge Medication List: Ambulatory Orders Amlodipine Besylate [Norvasc -] 5 mg PO DAILY 01/27/17 Enalapril Maleate [Vasotec] 20 mg PO DAILY 01/27/17 Omeprazole 20 mg PO DAILY 01/27/17 Alendronate Sodium [Binosto] 70 mg PO ASDIR 02/22/18 This patient is new to me today: Yes Date on this admission: 06/30/18 Emergency Visit: Yes Care time: The patient presented to the Emergency Department on the above date and was hospitalized for further evaluation of their emergent condition. Critical Care patient: No - Discharge Referral Referred to [facility] Yes Physician Referral: Adan Reeder MD ([facility])
[2018-06-30 15:46] VITALS: BP 112/68; PULSE 71
--- NOTE | 2018-06-30 15:53 | PN ---
Teaching Attending Note Name of Resident: Juan Jaramillo ATTENDING PHYSICIAN STATEMENT I saw and evaluated the patient. I reviewed the resident's note and discussed the case with the resident. I agree with the resident's findings and plan as documented. SUBJECTIVE:73yo F with PMH HTN presetned with chest soreness since last night. states pain improved with tylenol. area is on L sided of chest and limited to that area, does not radiate and not assoc with any other symptoms. states she felt a nodule on her breast 3 days ago which was also tender. currently has no CP. 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 no new work up done at that time no recent changes to her medications OBJECTIVE: Last Vital Signs Temp Pulse Resp BP Pulse Ox 97.8 F 71 16 112/68 96 06/30/18 14:32 06/30/18 15:45 06/30/18 15:45 06/30/18 15:45 06/30/18 15:45 General NAD CV S1 S2 RRR no murmur/rub/gallop +L upper chest wall tenderness Lungs CTA B/L no wheezing/rales/rhonchi Breast tender area in L at the 2oclock position. no masses or nodules felt ASSESSMENT AND PLAN: 73yo F with PMH HTN presented with chest soreness since last night. 1. Chest pain- likely muscular as able to elicit pain on exam. cardiac marker 0.1 to 0.9 after 2 hours. stress test in 2016 was normal. According to ER resident, Dr Dennison, who spoke with Dr Salas stating patient can be d/c home with f/u next week in cardio office if troponin does not rise. 2. L breast nodule- states she felt it but can not be found at this time. states she had mammogram over this past summer. encouraged to f/u wt primary for dedicated u/s 3. HTN- controlled. cont home medications 4. spoke about plan with present. will d/c home with follow up with cardio this week
--- NOTE | 2018-07-01 10:42 | EKG ---
Test Reason : Blood Pressure : / mmHG Vent. Rate : 068 BPM Atrial Rate : 068 BPM P-R Int : 150 ms QRS Dur : 086 ms QT Int : 402 ms P-R-T Axes : 035 025 008 degrees QTc Int : 427 ms NORMAL SINUS RHYTHM NONSPECIFIC T WAVE ABNORMALITY WHEN COMPARED WITH ECG OF 29-NOV-2017 09:18, PREMATURE VENTRICULAR COMPLEXES ARE NO LONGER PRESENT Confirmed by EDWIN BARRAZA MD ([id number]) on 07/01/2018 10:42:01 AM Referred By: Confirmed By:EDWIN BARRAZA MD
== END 2018-06-30 15:47 | disposition home or self-care (01) ==
LOC: JER 11:03 → JERBED 14:12 → UNDOADMOB 14:12 → JER 15:47
DX: R07.9 Chest pain, unspecified (principal); N63.20 Unspecified lump in the left breast, unspecified quadrant; I10 Essential (primary) hypertension; K21.9 Gastro-esophageal reflux disease without esophagitis
CPT/HCPCS: 36415; 71046-TC-FY; 80053; 83735; 84484; 85025; 85610; 85730; 93005; 93010; 99285-25

== ENCOUNTER 2018-08-09 09:55 | Emergency (ER) | payer OTHER ==
[2018-08-09 10:24] VITALS: TEMP 98.2; BMI 27.4
--- NOTE | 2018-08-09 11:23 | PDOC ---
History of Present Illness - General Chief Complaint: Pain Stated Complaint: LOWER BACK PAIN Time Seen by Provider: 08/09/18 10:39 History Source: Patient Exam Limitations: No Limitations - History of Present Illness Initial Comments: 08/09/18 11:18 73 YO F w/ a h/o HTN, GERD, hiatal hernia, constipation, no h/o abdominal surgeries, comes in c/o sudden onset of RLQ pain while defecating last night. Pain radiates to the R groin and RLE. Also c/o mild R sided buttock pain. Pain is worse when laying down and with ambulation. No fever/chills, no NVD, no constipation in the past week (takes milk of magnesia frequently), no burning/ pain on urination, no hematuria, no frequency on urination, no vaginal symptoms. Denies midback pain, no urinary/bowel incontinence, no extremity numbness/tingling, no h/o malignancy. NO prior h/o similar symptoms, no h/o kidney stones, no h/o appendicitis. Past History - Past Medical History Allergies/Adverse Reactions: Allergies Allergy/AdvReac Type Severity Reaction Status Date / Time No Known Allergies Allergy Verified 08/09/18 10:22 Home Medications: Ambulatory Orders Amlodipine Besylate [Norvasc -] 5 mg PO DAILY 01/27/17 Enalapril Maleate [Vasotec] 20 mg PO DAILY 01/27/17 Omeprazole 20 mg PO DAILY 01/27/17 Alendronate Sodium [Binosto] 70 mg PO ASDIR 02/22/18 Ibuprofen 400 mg PO TID 3 Days #10 tablet 08/09/18 Methocarbamol [Robaxin-750] 750 mg PO TID 3 Days #10 tablet 08/09/18 COPD: No DVT: No GI Disorders: Yes (reflux) HTN: Yes - Immunization History Immunization Up to Date: Yes - Suicide/Smoking/Psychosocial Hx Smoking History: Never smoked Hx Alcohol Use: No Drug/Substance Use Hx: No Substance Use Type: None Review of Systems - Review of Systems Able to Perform ROS?: Yes Constitutional: No: Chills, Fever, Malaise, Night Sweats HEENTM: No: Eye Pain, Recent change in vision, Throat Pain Respiratory: No: Cough, Shortness of Breath Cardiac (ROS): No: Chest Pain, Palpitations, Chest Tightness ABD/GI: Yes: Abdominal cramping. No: Diarrhea, Nausea, Vomiting : No: Dysuria, Hematuria Musculoskeletal: No: Back Pain Integumentary: No: Rash Neurological: No: Headache, Numbness, Dizziness Psychiatric: No: Change in Appetite Endocrine: No: Unexplained Weight Loss *Physical Exam - Vital Signs Last Vital Signs Temp Pulse Resp BP Pulse Ox 98.2 F 70 17 125/40 L 99 08/09/18 10:22 08/09/18 10:22 08/09/18 10:22 08/09/18 10:08/09/18 10:22 - Physical Exam General Appearance: Yes: Nourished. No: Apparent Distress HEENT: positive: ANTONIO, Normal ENT Inspection, Normal Voice. negative: Pale Conjunctivae, Scleral Icterus (R), Scleral Icterus (L) Neck: positive: Supple. negative: Decreased range of motion, Tender midline Respiratory/Chest: positive: Lungs Clear, Normal Breath Sounds. negative: Respiratory Distress, Accessory Muscle Use Cardiovascular: positive: Regular Rhythm, Regular Rate Gastrointestinal/Abdominal: positive: Normal Bowel Sounds, Tender (RLQ tenderness at McBurney's point, no rebound, (-)bowen's sign, (-)psoas sign, (-) Rosving sign. (+)R groin tenderness, no bulging felt with straining), Soft Musculoskeletal: positive: Normal Inspection, Muscle Spasm (R buttock), Other ( no midline back tenderness). negative: CVA Tenderness, Decreased Range of Motion, Vertebral Tenderness Extremity: positive: Normal Capillary Refill, Normal Inspection, Normal Range of Motion. negative: Tender, Pedal Edema Integumentary: positive: Normal Color, Dry. negative: Jaundice, Rash Neurologic: positive: Fully Oriented, Alert, Normal Mood/Affect ED Treatment Course - LABORATORY CBC & Chemistry Diagram: 08/09/18 11:28 08/09/18 11:28 - RADIOLOGY Radiology Studies Ordered: Category Date Time Status ABDOMEN & PELVIS CT WITH CONTR [CT] Stat CT Scan 08/09/18 11:10 Ordered Medical Decision Making - Medical Decision Making 08/09/18 11:24 73 yo F w/ RLQ/R groin tenderness. R/O hernia vs appendicitis. Also w/ R buttock spasm. WIll check UA, line and lab, do a CT abdomen/pelvis R/O hernia vs appendicitis. 08/09/18 13:56 Labs/CT reviewed. No hernia, no appendicitis, no diverticulitis. RUL consolidation/atelectasis, likely atelectasis. Pt without cough, no fever, no CP. Pain could be msk, will give toradol, robaxin and reassess 08/09/18 15:20 Pt feels better, asking to go home, will discharge with motrin, robaxin PRN. Alk phosphatase a little high, no RUQ tenderness no vomiting. I made pt aware of result and ened to follow up with PMD and have it repeated. PMD follow up tomorrow Return for worsening/concerning symptoms Pt verbalizes understanding and agrees with plan 08/09/18 15:34 *DC/Admit/Observation/Transfer Diagnosis at time of Disposition: Right groin pain Abdominal pain Qualifiers: Abdominal location: right lower quadrant Qualified Code(s): R10.31 - Right lower quadrant pain - Discharge Dispostion Disposition: HOME Condition at time of disposition: Stable - Prescriptions Prescriptions: Ibuprofen 400 mg PO TID 3 Days #10 tablet Methocarbamol [Robaxin-750] 750 mg PO TID 3 Days #10 tablet - Referrals Referrals: Adan Lu MD [Primary Care Provider] - - Patient Instructions Additional Instructions: Please see your PMD tomorrow. Return for worsening/concerning symptoms. - Post Discharge Activity
[2018-08-09 11:37] LABS: BASO % 0.5 % (0-2.0); EOS % 4.4 % (0-4.5); HEMATOCRIT 36.2 % (32.4-45.2); HEMOGLOBIN 12.1 GM/dL (10.7-15.3); LYMPH % 20.9 % (8-40); MCH 31.2 pg (25.7-33.7); MCHC 33.5 g/dl (32.0-36.0); MEAN CELL VOLUME 93.3 fl (80-96); MEAN PLT VOLUME 8.6 fl (7.5-11.1); MONO % 12.9 % (3.8-10.2); NEUT % 61.3 % (42.8-82.8); PLATELET COUNT 285 K/MM3 (134-434); RBC 3.88 M/mm3 (3.60-5.2); RDW 13.4 % (11.6-15.6); WHITE BLOOD COUNT 6.5 K/mm3 (4.0-10.0)
[2018-08-09 11:39] LABS: PH,URINE 6.5 (5.0-8.0); URINE APPEARANCE CLEAR; URINE BILIRUBIN NEGATIVE (NEGATIVE); URINE COLOR YELLOW; URINE GLUCOSE (UA) NEGATIVE (NEGATIVE); URINE KETONE NEGATIVE (NEGATIVE); URINE LEUK ESTERASE NEGATIVE (NEGATIVE); URINE NITRITE NEGATIVE (NEGATIVE); URINE PROTEIN NEGATIVE (NEGATIVE); URINE UROBILINOGEN 0.2 mg/dL (0.2-1.0)
[2018-08-09 11:54] LABS: PROTHROMBIN TIME (PATIENT) 11.8 SEC (9.7-13.0)
[2018-08-09 12:01] LABS: EPI CELLS 0.1 /HPF (0-5/HPF); URINE BACTERIA 0.5 /hpf (NEGATIVE); URINE RBC 1.2 /hpf (0-4); URINE WBC 0.1 /hpf (0-5)
[2018-08-09 12:04] LABS: ALBUMIN 3.8 g/dl (3.4-5.0); ALK PHOS 139 U/L (45-117); ANION GAP 4 MMOL/L (8-16); BILIRUBIN,TOTAL 0.4 mg/dL (0.2-1); BLOOD UREA NITROGEN 20 mg/dL (7-18); CALCIUM 8.9 mg/dL (8.5-10.1); CHLORIDE 103 mmol/L (98-107); CO2 27 mmol/L (21-32); CREATININE 0.6 mg/dL (0.55-1.3); GLUCOSE,RANDOM 103 mg/dL (74-106); LIPASE 89 U/L (73-393); MAGNESIUM 2.5 mg/dL (1.8-2.4); PHOSPHOROUS 3.9 mg/dL (2.5-4.9); POTASSIUM 4.5 mmol/L (3.5-5.1); SGOT/AST 26 U/L (15-37); SGPT/ALT 29 U/L (13-61); SODIUM 134 mmol/L (136-145); TOT PROT 7.4 g/dl (6.4-8.2)
[2018-08-09] MEDS ORDERED: KETOROLAC TROMETHAMINE 15 MG/ML VIAL IM ONE (13:55)
[2018-08-09] MEDS ORDERED: METHOCARBAMOL 500 MG TABLET PO ONE (13:55)
[2018-08-09] MEDS ORDERED: METHOCARBAMOL 500 MG TABLET ONE (14:00)
[2018-08-09] MEDS ORDERED: KETOROLAC TROMETHAMINE 15 MG/ML VIAL ONE (14:01)
[2018-08-09 15:26] VITALS: BP 132/57; PULSE 72
== END 2018-08-09 15:36 | disposition home or self-care (01) ==
LOC: JER 09:55
PROC: 3E0233Z Introduction of Anti-inflammatory into Muscle, Percutaneous Approach (ICD-10-PCS; principal; 2018-08-09)
DX: R10.31 Right lower quadrant pain (principal); I10 Essential (primary) hypertension; K21.9 Gastro-esophageal reflux disease without esophagitis
CPT/HCPCS: 36415; 74177-TC; 80053; 81003; 83690; 83735; 84100; 85025; 85610; 86850; 86900; 86901; 87086; 96372; 99284-25

== ENCOUNTER 2019-06-07 08:38 | Emergency (ER) | payer OTHER ==
[2019-06-07 08:56] VITALS: BP 116/61; PULSE 70; TEMP 97.9; BMI 29.2
--- NOTE | 2019-06-07 09:44 | PDOC ---
History of Present Illness - General Chief Complaint: Pain Stated Complaint: PAIN Time Seen by Provider: 06/07/19 09:35 History Source: Patient Exam Limitations: No Limitations - History of Present Illness Initial Comments: 06/07/19 09:38 74-year-old female presents the emergency room with complaints of left breast pain worsened with manipulation over the past 5 days without rash, redness, nipple discharge, difficulty breathing, or internal pain. Patient states last mammogram was done in October which was normal. Patient also complaining of right buttock pain radiating down the back of her leg intermittently worsened with standing. Patient states has had the pain for approximately 5 months and was told by her doctor it was likely sciatica. Patient states took nothing for the above and decided come to the ER today. Patient has no other complaints. Is this a multiple visit Asthma Patient?: No Timing/Duration: intermittent Severity: mild Associated Symptoms: reports: other Past History - Travel Traveled outside of the country in the last 30 days: No Close contact w/someone who was outside of country & ill: No - Past Medical History Allergies/Adverse Reactions: Allergies Allergy/AdvReac Type Severity Reaction Status Date / Time No Known Allergies Allergy Verified 06/07/19 08:51 Home Medications: Ambulatory Orders Amlodipine Besylate [Norvasc -] 5 mg PO DAILY 01/27/17 Enalapril Maleate [Vasotec] 20 mg PO DAILY 01/27/17 Omeprazole 20 mg PO DAILY 01/27/17 Alendronate Sodium [Binosto] 70 mg PO ASDIR 02/22/18 Ibuprofen 400 mg PO TID 3 Days #10 tablet 08/09/18 Methocarbamol [Robaxin-750] 750 mg PO TID 3 Days #10 tablet 08/09/18 Ibuprofen [Motrin -] 600 mg PO TID PRN #21 tablet 06/07/19 Ibuprofen [Motrin -] 600 mg PO TID PRN #21 tablet 06/07/19 COPD: No DVT: No GI Disorders: Yes (reflux) HTN: Yes - Immunization History Immunization Up to Date: Yes - Psycho Social/Smoking Cessation Hx Smoking History: Never smoked Hx Alcohol Use: No Drug/Substance Use Hx: No Substance Use Type: None Patient Lives Alone: No Lives with/in: spouse/SO Review of Systems - Review of Systems Able to Perform ROS?: No Is the patient limited [place] proficient: No Constitutional: No: Symptoms Reported HEENTM: No: Symptoms Reported Respiratory: No: Symptoms reported Cardiac (ROS): No: Symptoms Reported ABD/GI: No: Symptoms Reported : No: Symptoms Reported Musculoskeletal: Yes: Muscle Pain (Right buttock, left breast tissue) Integumentary: Yes: Erythema. No: Lesions, Lumps Neurological: No: Symptoms reported Endocrine: No: Symptoms Reported *Physical Exam - Vital Signs Last Vital Signs Temp Pulse Resp BP Pulse Ox 97.9 F 70 16 116/61 99 06/07/19 08:52 06/07/19 08:52 06/07/19 08:52 06/07/19 08:52 06/07/19 08:52 - Physical Exam General Appearance: Yes: Nourished, Appropriately Dressed. No: Apparent Distress HEENT: negative: Pale Conjunctivae Neck: positive: Normal Thyroid, Supple Respiratory/Chest: positive: Lungs Clear, Normal Breath Sounds, Other (Mild generalized tenderness of the left breast without pitting, nipple discharge, skin discoloration, increased warmth, or noted rash. No palpable masses no scar tissue to area). negative: Respiratory Distress, Accessory Muscle Use Cardiovascular: positive: Regular Rhythm, Regular Rate. negative: Murmur Vascular Pulses: Dorsalis-Pedis (R): 2+, Doralis-Pedis (L): 2+ Gastrointestinal/Abdominal: positive: Soft. negative: Tenderness Extremity: positive: Normal Capillary Refill, Normal Inspection, Normal Range of Motion, Tender (Right sciatica over the the right buttock) Integumentary: positive: Normal Color, Warm, Moist Neurologic: positive: Motor Strength 5/5 ( ambulatory) Medical Decision Making - Medical Decision Making 06/07/19 10:23 Chief complaint: Patient with left breast pain over the past 5 days upon awakening 5 days ago. Patient has no other complaints. No meds taken. Patient also complaining of intermittent right buttock pain radiating down the back of her leg for the past 5 months which she was told that it was sciatica. Exam: Patient with right sciatic tenderness. Otherwise left breast with normal exam except for tenderness mainly to the lateral aspect of breast tissue. Plan: Reviewed numerous CAT scans and MRIs including mammograms and breast ultrasound all done within the past year. No significant findings except for . thyroid lesion recommending a nonemergent thyroid ultrasound. Patient recommended to take Motrin for pain and follow-up with primary care doctor in regards to thyroid ultrasound and repeat breast ultrasound or mammo- if symptoms continue. Discharge - Discharge Information Problems reviewed: Yes Clinical Impression/Diagnosis: Breast pain, left, Sciatica Condition: Good Disposition: HOME - Additional Discharge Information Prescriptions: Ibuprofen [Motrin -] 600 mg PO TID PRN #21 tablet PRN Reason: Pain - Follow up/Referral Referrals: Adan Lu MD [Primary Care Provider] - - Patient Discharge Instructions Patient Printed Discharge Instructions: DI for Breast Pain (Mastalgia) Additional Instructions: Please follow-up with your regular doctor to to obtain a prescription for mammogram or breast ultrasound. In the meanwhile please take Motrin 400 to 600 mg every 6-8 hours. Also I have reviewed 2 of your CAT scans which are recommending ultrasound of your thyroid I do recommend following up with your doctor to obtain a prescription . Anh un seguimiento con weinberg mdico habitual para obtener abbie receta para la mamografa o la ecografa del seno. Mientras tanto, tome Motrin 400 a 600 mg cada 6-8 horas. Jan he revisado 2 de lukasz tomografas computarizadas que recomiendan ultrasonido de weinberg tiroides. Recomiendo hacer un seguimiento con weinberg mdico para obtener abbie receta. - Post Discharge Activity
== END 2019-06-07 10:30 | disposition home or self-care (01) ==
LOC: JERFT 08:38 → JER 08:38
DX: M54.31 Sciatica, right side (principal); N64.4 Mastodynia
CPT/HCPCS: 99282-25

== ENCOUNTER 2020-01-26 11:01 | Emergency (ER) | payer OTHER ==
[2020-01-26 11:12] VITALS: TEMP 98.5; BMI 27.1
--- NOTE | 2020-01-26 12:10 | PDOC ---
History of Present Illness - General Chief Complaint: Chest Pain Stated Complaint: CHEST PAIN Time Seen by Provider: 01/26/20 12:08 History Source: Patient Exam Limitations: No Limitations - History of Present Illness Initial Comments: 01/26/20 12:10 75F with PMH of GERD and HTN presents to ED with CP that's located at the left breast and radiates to left axillla with associated left arm numbness, started jarvis and gradually worsened since then. She reported a skin lesion of left breast that appears like a splinter, was carrying something heavy and noticed it Jarvis. She also mentioned that she was scheduled for a mammogram for a tender nodule of the left breast in October, but was unable to make the appointment. However states that the pain is different. She denies associated SOB, nv, syncope, or abdominal pain. Denies orthopnea or LE edema. 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 No weakness. HEENT: No change in vision. No ear pain or discharge. No sore throat. CARDIOVASCULAR: +chest pain; shortness of breath RESPIRATORY: No cough, wheezing, or hemoptysis. GASTROINTESTINAL: No nausea, vomiting, diarrhea or constipation. GENITOURINARY: No dysuria, frequency, or change in urination. MUSCULOSKELETAL: No joint or muscle swelling or pain. No neck or back pain. SKIN: No rash NEUROLOGIC: No headache, vertigo, loss of consciousness, or change in strength/sensation. ENDOCRINE: No increased thirst. No abnormal weight change HEMATOLOGIC/LYMPHATIC: No anemia, easy bleeding, or history of blood clots. ALLERGIC/IMMUNOLOGIC: No hives or skin allergy. PE GENERAL: AOx3; no acute distress HEAD: No signs of trauma, NC/AT EYES: PERRLA, EOMI, sclera anicteric, conjunctiva clear ENT: Auricles normal inspection, hearing grossly normal, nares patent, moist mucosa, oropharynx clear without exudates. NECK: Normal ROM, supple, no LAD, JVD, or masses HEART: RRR, normal S1/S2, no murmurs, rubs, or gallops. Peripheral pulses 2+ and equal bilaterally. Chest wall tenderness to palpation, left side and axilla LUNGS: No distress, speaks full sentences, CTA bilaterally ABDOMEN: Soft, nontender. No guarding, no rebound. No masses EXTREMITIES: Normal inspection, Normal range of motion, no edema. NEUROLOGICAL: CNII-XII grossly intact. Normal speech, no focal sensorimotor deficits SKIN: Small punctate lesion at left breast with dark splinter-like appearance, w/o surrounding erythema or warmth Assessment and Plan 1. ACS r/o 2. Costochrondritis Josafat Crowe, PGY1 Emergency Medicine Past History - Medical History Allergies/Adverse Reactions: Allergies Allergy/AdvReac Type Severity Reaction Status Date / Time No Known Allergies Allergy Verified 01/26/20 11:08 Home Medications: Ambulatory Orders Amlodipine Besylate [Norvasc -] 5 mg PO DAILY 01/27/17 Enalapril Maleate [Vasotec] 20 mg PO DAILY 01/27/17 Omeprazole 20 mg PO DAILY 01/27/17 Alendronate Sodium [Binosto] 70 mg PO ASDIR 02/22/18 Ibuprofen 400 mg PO TID 3 Days #10 tablet 08/09/18 Methocarbamol [Robaxin-750] 750 mg PO TID 3 Days #10 tablet 08/09/18 Ibuprofen [Motrin -] 600 mg PO TID PRN #21 tablet 06/07/19 Ibuprofen [Motrin -] 600 mg PO TID PRN #21 tablet 06/07/19 COPD: No DVT: No GI Disorders: Yes (reflux) HTN: Yes - Immunization History Immunization Up to Date: Yes - Psycho-Social/Smoking History Smoking History: Never smoked Have you smoked in the past 12 months: No - Substance Abuse Hx (Audit-C & DAST Scrn) How often the patient has a drink containing alcohol: Never Score: In Men: 4 or > Positive; In Women: 3 or > Positive: 0 Screen Result (Pos requires Nsg. Audit-10AR): Negative In the last yr the pt used illegal drug/Rx for NonMed reason: No Score: Yes response is considered Positive: 0 Screen Result (Positive result requires Nsg. DAST-10): Negative *Physical Exam - Vital Signs Last Vital Signs Temp Pulse Resp BP Pulse Ox 98.5 F 61 16 150/57 L 99 01/26/20 11:08 01/26/20 11:08 01/26/20 11:08 01/26/20 11:08 01/26/20 11:08 ED Treatment Course - LABORATORY CBC & Chemistry Diagram: 01/26/20 12:40 01/26/20 12:40 Medical Decision Making - Medical Decision Making 01/26/20 12:41 75F p/w CP at the L breast, radiates to left axillla with left arm numbness. Reproducible CP, left sided and axilla, small skin lesion, exam otherwise benign -> r/o ACS. 01/26/20 13:41 CMP demonstrated slight elevation of BUN, similar to previous levels. CBC unremarkable. Talked to ultrasound team about evaluating left breast for evidence of cellulitis/abscess, although low suspicion. Trop 0.05, consistent with previous trop -> will repeat 01/26/20 14:00 Mammography appointment was rescheduled for the pt on Friday 02/02. 01/26/20 14:22 EKG demonstrated nsr with PVC. With known risk factors, and cc of CP, PVC is more concerning. 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 Gooden. Repeat trop 0.05, no change, consistent with previous labs. Pt stable for discharge. Discharge - Discharge Information Problems reviewed: Yes Clinical Impression/Diagnosis: Breast pain, left Condition: Stable Disposition: HOME - Admission No - Follow up/Referral Referrals: Adan Lu MD [Primary Care Provider] - Miguelito Parra MD [Staff Physician] - - Patient Discharge Instructions Patient Printed Discharge Instructions: DI for Atypical Chest Pain, DI for Chest Pain Additional Instructions: You were seen in the emergency department for chest pain. Your labs and imaging were normal. We would like you to see a spring manufacturing set up technician, Dr. Gooden. We also made you another appointment for a mammogram at [facility] on SundayFebruary 02 at 11:30am. Please follow up with your primary care physician regarding your visit to the emergency department. If you experience profound worsening chest pain with shortness of breath, nausea, or pass out, please return to the emergency department or call 911. Lo vieron en el departamento de emergencias por dolor en el pecho. Jeanna anlisis de laboratorio e imgenes fueron normales. Nos gustara que amor a un cardilogo, Dr. Ginelli. Jan hannonimos otra melissa para abbie mamografa en [facility] el dakota 13 de re a las 11:30 am. Anh un seguimiento con weinberg mdico de atencin primaria con respecto a weinberg visita al departamento de emergencias. Si experimenta un dolor en el pecho que empeora profundamente con dificultad para respirar, nuseas o desmayo, regrese al departamento de emergencias o llame al 911. Print Language: SAO TOMEAN - Post Discharge Activity
[2020-01-26 13:10] LABS: BASO % 0.5 % (0-2.0); EOS % 10.4 % (0-4.5); HEMATOCRIT 35.5 % (32.4-45.2); HEMOGLOBIN 11.7 GM/dL (10.7-15.3); MCH 30.7 pg (25.7-33.7); MCHC 33.1 g/dl (32.0-36.0); MEAN CELL VOLUME 92.9 fl (80-96); MEAN PLT VOLUME 9.7 fl (7.5-11.1); MONO % 10.8 % (3.8-10.2); NEUT % 48.3 % (42.8-82.8); PLATELET COUNT 346 K/MM3 (134-434); RBC 3.82 M/mm3 (3.60-5.2); RDW 13.7 % (11.6-15.6); WHITE BLOOD COUNT 5.6 K/mm3 (4.0-10.0)
[2020-01-26 13:24] LABS: ALBUMIN 3.8 g/dl (3.4-5.0); BILIRUBIN,TOTAL 0.3 mg/dL (0.2-1); BLOOD UREA NITROGEN 22.1 mg/dL (7-18); CALCIUM 8.9 mg/dL (8.5-10.1); POTASSIUM 4.6 mmol/L (3.5-5.1); TOT PROT 7.7 g/dl (6.4-8.2)
--- NOTE | 2020-01-26 14:07 | PDOC ---
Documentation entered by Amarjit Bonner SCRIBE, acting as scribe for Viral Rivas MD. Viral Rivas MD: This documentation has been prepared by the Ha gardiner Alexis, SCRIBE, under my direction and personally reviewed by me in its entirety. I confirm that the documentation accurately reflects all work, treatment, procedures, and medical decision making performed by me. Attending Attestation - Resident Resident Name: Josafat Crowe - ED Attending Attestation I have performed the following: I have examined & evaluated the patient, The case was reviewed & discussed with the resident, I agree w/resident's findings & plan, Exceptions are as noted - HPI HPI: 01/26/20 12:52 The patient is a 75 year old female with a significant past medical history of HTN, diverticulitis, and GERD who presents to the emergency department for evaluation of left sided chest pain that began three days ago. The patient reports her chest pain is left sided and radiates to her left underarm associated with worsening left arm numbness. She also endorses a skin lesion on her left breast that she noticed on Sunday. The patient had a mammogram scheduled in October, but did not go to this appointment. The patient denies abdominal/back pain, cough, and shortness of breath. Denies fever, chills, nausea, vomiting, and/or any GI symptoms. Denies any symptoms. Denies any other symptoms. Allergies: NKA Social Hx: None reported PCP: Dr. Lu - Physicial Exam PE: 01/26/20 12:26 Vitals: Triage vital signs reviewed General Appearance: No acute distress, well nourished, well developed Head: Atraumatic Chest wall reproducible tenderness to palpation over the left breast Cardiac: Regular rate and rhythm, no murmurs, no rubs, no gallops Lungs: Clear to auscultation bilateral, good air movement bilaterally Abdomen: Soft, nondistended, normal bowel sounds, nontender to palpation Extremities: Full range of motion to all extremities, no cyanosis, clubbing, or edema Skin: Warm and dry, no rashes or lesions, no rash, no petechiae Psych: Normal mood, normal affect - Medical Decision Making 01/26/20 14:09 EKG performed at 1105 demonstrates sinus rhythm with premature ventricular complexes We will check 2 troponins and have patient follow-up with cardiology Discharge - Discharge Information Problems reviewed: Yes Clinical Impression/Diagnosis: Breast pain, left Condition: Stable Disposition: HOME - Follow up/Referral Referrals: Adan Lu MD [Primary Care Provider] - Miguelito Parra MD [Staff Physician] - - Patient Discharge Instructions Patient Printed Discharge Instructions: DI for Atypical Chest Pain, DI for Chest Pain Additional Instructions: You were seen in the emergency department for chest pain. Your labs and imaging were normal. This can be caused by [ DESCRIBE ]. As such you were treated for [ DESCRIBE ]. You were given [ DESCRIBE ] in the emergency department and sent home with a prescription. Please follow up with your primary care physician and or [ Specialist ] regarding your visit to the emergency department. If you experience profound [ DESCRIBE SIGNS & SYMPTOMS ] please return to the emergency department or call 911. Print Language: SALVADOREAN - Post Discharge Activity
[2020-01-26 16:48] VITALS: BP 176/64; PULSE 88
--- NOTE | 2020-01-26 16:55 | EKG ---
Test Reason : Blood Pressure : / mmHG Vent. Rate : 075 BPM Atrial Rate : 063 BPM P-R Int : 158 ms QRS Dur : 078 ms QT Int : 388 ms P-R-T Axes : 029 014 009 degrees QTc Int : 433 ms SINUS RHYTHM WITH OCCASIONAL PREMATURE VENTRICULAR COMPLEXES OTHERWISE NORMAL ECG WHEN COMPARED WITH ECG OF 30-JUN-2018 10:13, PREMATURE VENTRICULAR COMPLEXES ARE NOW PRESENT Confirmed by EDWIN BARRAZA MD ([id number]) on 01/26/2020 4:54:58 PM Referred By: Confirmed By:EDWIN BARRAZA MD
== END 2020-01-26 16:59 | disposition home or self-care (01) ==
LOC: JER 11:01
DX: N64.4 Mastodynia (principal)
CPT/HCPCS: 36415; 71046-TC-FY; 80053; 82550; 84484; 85025; 93005; 93010; 99285-25

== ENCOUNTER 2020-09-26 21:00 | Emergency (ER) | payer OTHER ==
[2020-09-26 21:30] VITALS: BP 132/64; PULSE 78; TEMP 98.8; BMI 37.2
[2020-09-26] MEDS ORDERED: FAMOTIDINE 20 MG/50 ML IVPB 20 MG/50 ML MG IVPB ONE ×2 (22:14→22:19)
[2020-09-26] MEDS ORDERED: methylPREDNISolone NA SUCC 125 MG/2 ML VIAL IVPUSH ONE (22:14)
[2020-09-26] MEDS ORDERED: methylPREDNISolone NA SUCC 125 MG/2 ML VIAL ONE (22:19)
[2020-09-26] MEDS ORDERED: diphenhydrAMINE HCL 25 MG CAPSULE (FP) PO ONE ×2 (23:13→23:14)
== END 2020-09-27 01:47 | disposition home or self-care (01) ==
LOC: JER 21:00
PROC: 3E033GC Introduction of Other Therapeutic Substance into Peripheral Vein, Percutaneous Approach (ICD-10-PCS; principal; 2020-09-26)
PROC: 3E033GC Introduction of Other Therapeutic Substance into Peripheral Vein, Percutaneous Approach (ICD-10-PCS; 2020-09-26)
PROC: 3E033GC Introduction of Other Therapeutic Substance into Peripheral Vein, Percutaneous Approach (ICD-10-PCS; 2020-09-26)
DX: Z88.9 Allergy status to unspecified drugs, medicaments and biological substances (principal)
CPT/HCPCS: 99284-25

== ENCOUNTER 2020-09-30 08:03 | Inpatient (IN) | payer OTHER ==
[2020-09-30 08:20] VITALS: BMI 32.5
[2020-09-30] MEDS ORDERED: ASPIRIN 81 MG CHEWABLE TABLETS PO ONE (09:02)
[2020-09-30] MEDS ORDERED: ASPIRIN 81 MG CHEWABLE TABLETS ONE (09:10)
[2020-09-30 09:16] LABS: BASO % 0.7 % (0-2.0); EOS % 2.4 % (0-4.5); HEMATOCRIT 33.8 % (32.4-45.2); HEMOGLOBIN 11.6 GM/dL (10.7-15.3); LYMPH % 41.1 % (8-40); MCH 30.6 pg (25.7-33.7); MCHC 34.4 g/dl (32.0-36.0); MEAN CELL VOLUME 88.9 fl (80-96); MEAN PLT VOLUME 8.5 fl (7.5-11.1); MONO % 8.7 % (3.8-10.2); NEUT % 47.1 % (42.8-82.8); PLATELET COUNT 376 K/MM3 (134-434); RBC 3.81 M/mm3 (3.60-5.2); RDW 13.8 % (11.6-15.6); WHITE BLOOD COUNT 7.6 K/mm3 (4.0-10.0)
[2020-09-30 09:24] LABS: PROTHROMBIN TIME (PATIENT) 12.1 SEC (9.7-13.0)
[2020-09-30 09:26] LABS: ACTIVATED PTT 25.6 SECONDS (25.2-36.5)
[2020-09-30 09:36] LABS: ALBUMIN 3.9 g/dl (3.4-5.0); BLOOD UREA NITROGEN 29.3 mg/dL (7-18)
[2020-09-30 09:41] LABS: BILIRUBIN,TOTAL 0.3 mg/dL (0.2-1); TOT PROT 7.5 g/dl (6.4-8.2)
[2020-09-30 11:57] LABS: PH,URINE 6.5 (5.0-8.0); URINE APPEARANCE CLEAR; URINE BILIRUBIN NEGATIVE (NEGATIVE); URINE COLOR YELLOW; URINE GLUCOSE (UA) NEGATIVE (NEGATIVE); URINE KETONE NEGATIVE (NEGATIVE); URINE LEUK ESTERASE NEGATIVE (NEGATIVE); URINE NITRITE NEGATIVE (NEGATIVE); URINE PROTEIN NEGATIVE (NEGATIVE); URINE UROBILINOGEN 0.2 mg/dL (0.2-1.0)
[2020-09-30] MEDS ORDERED: ATORVASTATIN CA 80 MG TABLET (FP) PO ONE (15:00)
[2020-09-30] MEDS ORDERED: ATORVASTATIN CA 80 MG TABLET (FP) ONE (15:03)
[2020-10-01 07:21] LABS: BASO % 0.3 % (0-2.0); EOS % 5.3 % (0-4.5); HEMATOCRIT 36.8 % (32.4-45.2); HEMOGLOBIN 12.5 GM/dL (10.7-15.3); LYMPH % 24.3 % (8-40); MCH 30.3 pg (25.7-33.7); MCHC 33.9 g/dl (32.0-36.0); MEAN CELL VOLUME 89.5 fl (80-96); MEAN PLT VOLUME 8.4 fl (7.5-11.1); MONO % 7.4 % (3.8-10.2); NEUT % 62.7 % (42.8-82.8); PLATELET COUNT 400 K/MM3 (134-434); RBC 4.11 M/mm3 (3.60-5.2); RDW 14.2 % (11.6-15.6); WHITE BLOOD COUNT 9.4 K/mm3 (4.0-10.0)
[2020-10-01 07:49] LABS: ALBUMIN 3.6 g/dl (3.4-5.0); BLOOD UREA NITROGEN 31.5 mg/dL (7-18); CALCIUM 8.8 mg/dL (8.5-10.1); MAGNESIUM 2.2 mg/dL (1.8-2.4)
[2020-10-01 07:52] LABS: PHOSPHOROUS 3.6 mg/dL (2.5-4.9)
[2020-10-01 07:53] LABS: BILIRUBIN,TOTAL 0.3 mg/dL (0.2-1); TOT PROT 7.4 g/dl (6.4-8.2)
[2020-10-01] MEDS ORDERED: ASPIRIN COATED 81 MG TABLET.EC PO SCH (10:00)
[2020-10-01] MEDS ORDERED: ENOXAPARIN NA (PORCINE) 40 MG/0.4 ML DISP.SYRIN SQ SCH (10:00)
[2020-10-01 13:59] VITALS: BP 132/77; PULSE 86; TEMP 98.9
== END 2020-10-01 14:49 | disposition home or self-care (01) | DRG 880 ==
LOC: JER 08:03 → JERBED 10:25 → J4S 15:22
PROVIDERS: ATTEND Internal Medicine
DX: F41.8 Other specified anxiety disorders (principal); H53.8 Other visual disturbances; E66.9 Obesity, unspecified; Z68.32 Body mass index [BMI] 32.0-32.9, adult; I10 Essential (primary) hypertension; E78.5 Hyperlipidemia, unspecified; M79.7 Fibromyalgia; K44.9 Diaphragmatic hernia without obstruction or gangrene; R29.810 Facial weakness; K29.50 Unspecified chronic gastritis without bleeding
CPT/HCPCS: 36415; 70450-TC; 70551-TC; 76641-TC-50; 80053; 80061; 81003; 82550; 82553; 82962; 83036; 83721; 83735; 84100; 84443; 84484; 85025; 85610; 85730; 86850; 86900; 86901; 93005; 93010; 93306-TC; 93880-TC; 99285-25; C9803; U0003; U0005

== ENCOUNTER 2020-12-22 15:42 | Emergency (ER) | payer OTHER ==
[2020-12-22 16:15] VITALS: TEMP 98.5; BMI 35.2
[2020-12-22] MEDS ORDERED: METOCLOPRAMIDE HCL INJECTION 10 MG/2 ML VIAL IVPUSH ONE (17:26)
[2020-12-22] MEDS ORDERED: SODIUM CHLORIDE 0.9% 500 ML INFUS.BAG IV ONE (17:26)
[2020-12-22] MEDS ORDERED: METOCLOPRAMIDE HCL INJECTION 10 MG/2 ML VIAL ONE (17:55)
[2020-12-22] MEDS ORDERED: KETOROLAC TROMETHAMINE 15 MG/ML VIAL IVPUSH ONE (18:20)
[2020-12-22] MEDS ORDERED: KETOROLAC TROMETHAMINE 15 MG/ML VIAL ONE (18:23)
[2020-12-22] MEDS ORDERED: ACETAMINOPHEN 1000 MG/100 ML VIAL (NON FORMULARY) IVPB ONE (19:54)
[2020-12-22] MEDS ORDERED: ACETAMINOPHEN INJECTION 100 ML IVPB ONE (21:24)
[2020-12-22 22:10] VITALS: BP 140/80; PULSE 82
== END 2020-12-22 22:15 | disposition home or self-care (01) ==
LOC: JER 15:42
PROC: 3E0333Z Introduction of Anti-inflammatory into Peripheral Vein, Percutaneous Approach (ICD-10-PCS; principal; 2020-12-22)
PROC: 3E0333Z Introduction of Anti-inflammatory into Peripheral Vein, Percutaneous Approach (ICD-10-PCS; 2020-12-22)
PROC: 3E033GC Introduction of Other Therapeutic Substance into Peripheral Vein, Percutaneous Approach (ICD-10-PCS; 2020-12-22)
DX: R51.9 Headache, unspecified (principal)
CPT/HCPCS: 96374; 96375; 99284-25; J0131